=== PATIENT | female | born 1980 | race Caucasian/White ===

== ENCOUNTER 2021-10-17 06:40 | Emergency (ER) | payer OTHER, SELFPAY ==
--- NOTE | 2021-10-17 06:44 | ED.GENADUL_ITS ---
Discharge Plan Disposition Patient Disposition: HOME Condition: Improving Discharge Details Clinical Impression: Biliary colic Primary Care Provider: Debbie,Local ED Provider: aJz Patel Home Meds and New Rx's Prescriptions: New ondansetron 4 mg tablet,disintegrating 4 mg PO TID PRN (Reason: nausea and vomiting) Qty: 6 0RF Continued atorvastatin 20 mg Tablet 20 mg PO DAILY 0RF glimepiride 2 mg Tablet 2 mg PO QAM 0RF Rx Instructions: administer with breakfast glimepiride 1 mg Tablet 1 mg PO HS 0RF acetaminophen 650 mg Tablet Extended Release 650 mg PO DAILY 0RF metformin 1,000 mg Tablet 1,000 mg PO BID 0RF hydrochlorothiazide 25 mg Tablet 25 mg PO DAILY 0RF lisinopril 40 mg Tablet 40 mg PO DAILY 0RF calcium phos,dibas-vitamin D3 77-400 mg-unit Tablet 1 tab PO DAILY 0RF Ozempic 0.25 mg or 0.5 mg(2 mg/1.5 mL) Pen Injector 0.25 mg SUBCUT QWEEK 0RF Rx Instructions: for 4 doses Discharge Instructions Instructions: Biliary Colic (ED) Additional Instructions: Your lab work and imaging today shows evidence of stones within your gallbladder which are likely the source of your pain and nausea. There was no evidence of an acute infection of your gallbladder today. Your urine sample noted blood within your urine today. Follow-up with urology as an outpatient for this for further evaluation. It is recommended that you limit high-fat and fried foods as this can contribute to the development of gallstones. Call the general surgery office today to schedule a follow-up appointment for reevaluation. Return immediately to the emergency department if you develop any worsening or new concerning symptoms. Stand Alone Forms: Work Release Referrals: Jovani Tirado MD [ [facility] STAFF PHYSICIAN] - Susan Butcher MD [ [facility] STAFF PHYSICIAN] - Discharge Data Discharge Physician: Jaz Patel Medical Decision Making 41 yo female with hx of DM denies prior abdominal surgeries comes in with 3-4 days of increasing abdominal fullness and bloating and was not able to sleep well last night due to this sensation so came here for an eval. Denies pain like this in the past, no fevres, chills, vomit, chest pain, dyspnea. Denies urinary symptoms or diarrhea. She arrives stable in no distress. She localizes the discomfort to the upper to mid abdomen. She has tenderness on exam in the mid and ruq on exam, no guarding or peritoneal signs. Given the new discomfort and tenderness will obtain labs and imaging to evaluate for sbo, pancreatitis and cholecystitis among other pathologies. No pain out of proportion to exam so doubt mesenteric ischemia patient signed out to oncoming provider pending lab and imaging results, reassessment and final dispo 10/17/21 Dr. Patel [id number] --please see Dr. Ward's note for initial presentation, exam and plan. Case endorsed pending labs and imaging. Blood pressure mildly hypertensive, remainder vitals within normal limits. Patient appears comfortable and nontoxic. Her abdomen is obese and tender throughout but worse in the epigastrium, left upper quadrant and right upper quadrant. There is no rigidity or guarding. Differential diagnosis includes GERD, PUD, gastritis, pancreatitis, biliary colic, cholecystitis, hepatitis. History and presentation does not appear consistent with appendicitis, ovarian torsion, dissection, colitis, small bowel obstruction. Will order gallbladder ultrasound and CT abdomen and pelvis. Will give Pepcid, Zofran, GI cocktail and Carafate and reassess. 0930 -- Labs and imaging reviewed. Normal white blood cell count. Normal hemoglobin. Normal VBG. Glucose 221 but with normal electrolytes. Normal lipase. Normal liver function. Urinalysis notes large blood but no evidence of infection. CT abdomen and pelvis and ultrasound both note Rona lithiasis but no evidence of cholecystitis. Patient feels much better and she is requesting to go home. Patient placed on surgery follow-up list for reevaluation. She was also placed on care management list to arrange for a follow-up appointment with a primary care doctor to establish care. She was given a prescription for Zofran. It was recommended that she can take [id number] Pepcid or Prilosec if needed for pain. She was advised to limit high fat and fried foods. She was advised to return here immediately if she develops worsening pain, persistent vomiting, fever or any other concerns. Differential Diagnosis Differential Diagnosis: sbo, ibs, pancreatitis Medical Records Medical records reviewed: Yes I reviewed the patient's medical records. Imaging Data Radiologic Study: Radiologist's impression: CT ABDOMEN ? PELVIS W INDICATION:? upper abd pain, nausea. COMPARISON:? No exams were available for comparison TECHNIQUE:? FINDINGS: CT examination of the abdomen and pelvis was performed with a bolus infusion of 100 cc of Omnipaque 350.? Images obtained through the lung bases are unremarkable. The liver shows mildly decreased attenuation consistent with hepatic steatosis, no focal lesion identified. Gallbladder appears to contain a few small stones, bile ducts are CT normal. Pancreas appears normal. Spleen is unremarkable in appearance. Adrenals appear normal.? The kidneys are unremarkable except for a probable 17 millimeter in diameter right renal cyst the with no evidence of hydronephrosis, nephrolithiasis, or renal mass..? Urinary bladder unremarkable. Abdominal aorta is of normal diameter and no major vascular abnormality is seen. No abdominal wall hernia. No abdominal or pelvic adenopathy. SENIOR CARE MANAGER structures appear intact. Appendix is normal. No evidence of diverticulitis or bowel obstruction. IMPRESSION: Cholelithiasis with no specific evidence of acute cholecystitis or biliary obstruction.. US ABDOMEN LIMITED INDICATION:? RUQ pain, obese, nausea, r/o cholecystitis COMPARISON:? No exams were available for comparison TECHNIQUE:? Ultrasound abdomen performed using standard protocol FINDINGS: Abdominal ultrasound was performed according to the usual protocol. The liver is normal in size and shape. No focal hepatic lesion seen. There are few small gallstones, there is no biliary dilatation. No gallbladder wall thickening or pericholecystic fluid collection.? Negative sonographic Hatch sign Portal venous flow is hepatopetal. Pancreas appears intact as visualized. Spleen is unremarkable in appearance with no focal lesion. Kidneys are normal in size and shape. No renal mass, hydronephrosis, or nephrolithiasis. Abdominal aorta and IVC are of normal diameter. IMPRESSION: Cholelithiasis with no evidence of acute cholecystitis.. Lab Data Lab results reviewed: Yes I reviewed the patient's lab results. Labs: Laboratory Tests Range/Units 10/17/21 10/17/21 10/17/21 07:00 07:10 07:10 WBC (4.4-10.8) 10^3/uL 6.91 RBC (3.93-5.22) 10^6/uL 5.20 Hgb (11.2-15.7) g/dL 11.9 Hct (36.0-46.0) % 40.0 MCV (80-95) fL 76.9 L MCH (27.0-33.0) pg 22.9 L MCHC (32.0-36.0) % 29.8 L RDW (11.7-14.6) % 15.1 H Plt Count (130-400) 10^3/uL 411 H MPV (8.0-11.0) fL 8.0 Immature Gran % 0.6 Neutrophils % 54.5 Lymphocytes % 33.1 Monocytes % 8.5 Eosinophils % 2.7 Basophils % 0.6 Nucleated RBC % % 0 Absolute Neutrophils (1.2-6.7) 10^3/uL 3.76 Absolute Lymphocytes (1.2-3.4) 10^3/uL 2.29 Absolute Monocytes (0.1-0.8) 10^3/uL 0.59 Absolute Eosinophils (0.0-0.7) 10^3/uL 0.19 Absolute Basophils (0.0-0.2) 10^3/uL 0.04 VBG pH (7.31-7.41) VBG pCO2 (41-51) mmHg VBG pO2 mmHg VBG HCO3 (23-28) mmol/L VBG Total CO2 (24-29) mmol/L VBG O2 Saturation % VBG Base Excess (-2-3) mmol/L Sodium (136-145) mmol/L 138 Potassium (3.5-5.1) mmol/L 4.1 Chloride (98-107) mmol/L 102 Carbon Dioxide (21.0-32.0) mmol/L 28.8 Anion Gap (3-11) mmol/L 7.2 BUN (7-18) mg/dL 12 Creatinine (0.55-1.02) mg/dL 0.6 Estimated GFR/1.73 m2 (mL/min/1.73m2) >= 60.00 Glucose (74-106) mg/dL 221 H Calcium (8.5-10.1) mg/dL 9.0 Magnesium (1.8-2.4) mg/dL 1.9 Total Bilirubin (0.2-1.0) mg/dL 0.4 Conjugated Bilirubin (0.0-0.2) mg/dL 0.1 AST (15-37) U/L 30 ALT (14-59) U/L 44 Alkaline Phosphatase (46-116) U/L 94 Total Protein (6.4-8.2) g/dL 8.1 Albumin (3.4-5.0) g/dL 4.0 Lipase (73-393) U/L 130 Urine Color (Yellow) Yellow Urine Clarity (Clear) Sl Cloudy Urine pH (5-8) 6.0 Ur Specific Call (1.005-1.025) >= 1.030 H Urine Protein (Negative) mg/dL 100 H Urine Ketones (Negative) mg/dL Trace H Urine Blood (Negative) Large H Urine Nitrite (Negative) Negative Urine Bilirubin (Negative) Negative Urine Urobilinogen (Up TO 0.2) EU/dL 0.2 Ur Leukocyte Esterase (Negative) Negative Urine RBC (0-2) HPF 20-50 H Urine WBC (0-5) HPF 0-2 Ur Epithelial Cells (Negative) HPF Rare Urine Crystals (Negative) HPF Negative Urine Bacteria (Negative) HPF Few Urine Casts (Negative) LPF Negative Urine Mucus (Negative) Heavy Urine Other (Negative) Negative Ur Culture Indicated? No Urine Glucose (Negative) mg/dL Negative Range/Units 10/17/21 07:10 WBC (4.4-10.8) 10^3/uL RBC (3.93-5.22) 10^6/uL Hgb (11.2-15.7) g/dL Hct (36.0-46.0) % MCV (80-95) fL MCH (27.0-33.0) pg MCHC (32.0-36.0) % RDW (11.7-14.6) % Plt Count (130-400) 10^3/uL MPV (8.0-11.0) fL Immature Gran % Neutrophils % Lymphocytes % Monocytes % Eosinophils % Basophils % Nucleated RBC % % Absolute Neutrophils (1.2-6.7) 10^3/uL Absolute Lymphocytes (1.2-3.4) 10^3/uL Absolute Monocytes (0.1-0.8) 10^3/uL Absolute Eosinophils (0.0-0.7) 10^3/uL Absolute Basophils (0.0-0.2) 10^3/uL VBG pH (7.31-7.41) 7.38 VBG pCO2 (41-51) mmHg 49 VBG pO2 mmHg 64 VBG HCO3 (23-28) mmol/L 29 H VBG Total CO2 (24-29) mmol/L 27 VBG O2 Saturation % 92 VBG Base Excess (-2-3) mmol/L 4 H Sodium (136-145) mmol/L Potassium (3.5-5.1) mmol/L Chloride (98-107) mmol/L Carbon Dioxide (21.0-32.0) mmol/L Anion Gap (3-11) mmol/L BUN (7-18) mg/dL Creatinine (0.55-1.02) mg/dL Estimated GFR/1.73 m2 (mL/min/1.73m2) Glucose (74-106) mg/dL Calcium (8.5-10.1) mg/dL Magnesium (1.8-2.4) mg/dL Total Bilirubin (0.2-1.0) mg/dL Conjugated Bilirubin (0.0-0.2) mg/dL AST (15-37) U/L ALT (14-59) U/L Alkaline Phosphatase (46-116) U/L Total Protein (6.4-8.2) g/dL Albumin (3.4-5.0) g/dL Lipase (73-393) U/L Urine Color (Yellow) Urine Clarity (Clear) Urine pH (5-8) Ur Specific Call (1.005-1.025) Urine Protein (Negative) mg/dL Urine Ketones (Negative) mg/dL Urine Blood (Negative) Urine Nitrite (Negative) Urine Bilirubin (Negative) Urine Urobilinogen (Up TO 0.2) EU/dL Ur Leukocyte Esterase (Negative) Urine RBC (0-2) HPF Urine WBC (0-5) HPF Ur Epithelial Cells (Negative) HPF Urine Crystals (Negative) HPF Urine Bacteria (Negative) HPF Urine Casts (Negative) LPF Urine Mucus (Negative) Urine Other (Negative) Ur Culture Indicated? Urine Glucose (Negative) mg/dL HPI General Mode of arrival: ambulatory . Date/Time Provider Initiated Documentation: 10/17/21 06:42 . Limitations to Documentation: no limitations . Information obtained by: patient . History of Present Illness 41 year old F p resents to the emergency department with the chief complaint of abdomen pain, described as moderate, Quality is described as other (fullness), and is localized to the abdomen. Patient reports no radiation. and it has been constant. improves with No relieving factors improve symptom(s), No exacerbating factors reported . Patient notes denies fever/chills. Patient did receive the following treatments prior to arrival, none Related Data Home Medications Medication Instructions Recorded Confirmed acetaminophen 650 mg 650 mg PO DAILY 10/17/21 10/17/21 tablet,extended release atorvastatin 20 mg tablet 20 mg PO DAILY 10/17/21 10/17/21 calcium phosphate,dibasic 77 1 tab PO DAILY 10/17/21 10/17/21 mg-vitamin D3 400 unit tablet glimepiride 1 mg tablet 1 mg PO HS 10/17/21 10/17/21 glimepiride 2 mg tablet 2 mg PO QAM 10/17/21 10/17/21 hydrochlorothiazide 25 mg tablet 25 mg PO DAILY 10/17/21 10/17/21 lisinopril 40 mg tablet 40 mg PO DAILY 10/17/21 10/17/21 metformin 1,000 mg tablet 1,000 mg PO BID 10/17/21 10/17/21 ondansetron 4 mg disintegrating 4 mg PO TID PRN #6 tab 10/17/21 tablet semaglutide (Ozempic) 0.25 mg SUBCUT QWEEK 10/17/21 10/17/21 Previous Rx's Medication Instructions Recorded ondansetron 4 mg disintegrating 4 mg PO TID PRN #6 tab 10/17/21 tablet Allergies Allergy/AdvReac Type Severity Reaction Status Date / Time No Known Allergies Allergy Unverified 10/17/21 07:21 Review of Systems All systems reviewed & are unremarkable except as noted in HPI and below Constitutional Constitutional: Denies chills, Denies fever(s) and Denies weakness Cardiovascular Cardiovascular: Denies chest pain and Denies dyspnea Respiratory Respiratory: Denies cough and Denies dyspnea Gastrointestinal Gastrointestinal: Denies vomiting Neurologic Neurologic: Denies weakness PFSH All Active Problems (Updated 10/17/21 @ 09:40 by Jaz Patel DO) Biliary colic (Acute) Medical History (Updated 10/17/21 @ 09:40 by Jaz Patel DO) Diabetes Social History Smoking/Tobacco Use Status: Current every day Tobacco Type: cigarettes Smoking risk assessment performed?: Yes Alcohol Intake: never Drug use: Never Substance use type: does not use Do you feel safe at home: Yes Do you feel safe in your relationship?: Yes Exam Const General: no acute distress Orientation: alert HENMT Head: normal to inspection Ears: external ears normal General nose exam: external nose normal Mouth: moist mucous membranes Eyes General: appearance normal, both eyes and all related structures Neck Neck: normal visual inspection Resp Effort & Inspection: normal respiratory effort and able to speak in complete sentences Cardio Rate: regular rate GI Palpation: tender Skin General skin exam: no rashes or lesions noted Neuro General: patient alert and patient oriented x3 Extrem General: normal to inspection Psych Mental Status: mental status grossly normal Sign Out Sign Out Data: Sign Out Comment: 3-4 days abdominal fullness/discomfort, tender in mid and ruq on exam. Pending labs and CT, if everything negative and she's stable likely d/c with pcp f/u Last updated by Piyush Ward MD at 10/17/21 07:05
[2021-10-17 06:49] VITALS: BP 158/80; PULSE 95; RESP 18; TEMP 36.4; O2SAT 96
[2021-10-17] MEDS: Normal Saline Flush 10 ML SYR IVP (07:10)
[2021-10-17] MEDS: Normal Saline 1,000 ML 1000 ML IV (07:13)
[2021-10-17 07:19] LABS: BE (Venous) 4 mmol/L (-2-3); HCO3 (Venous) 29 mmol/L (23-28); O2 Sat (Venous) 92 %; TCO2 (Venous) 27 mmol/L (24-29); pCO2 (Venous) 49 mmHg (41-51); pH (Venous) 7.38 (7.31-7.41); pO2 (Venous) 64 mmHg
[2021-10-17 07:22] LABS: Abs Immature Grans 0.04 10^3/uL (0.0-0.06); Absolute Basophil Count 0.04 10^3/uL (0.0-0.2); Absolute Eosinophil Count 0.19 10^3/uL (0.0-0.7); Absolute Lymphocyte Count 2.29 10^3/uL (1.2-3.4); Absolute Monocyte Count 0.59 10^3/uL (0.1-0.8); Absolute Neutrophil Count 3.76 10^3/uL (1.2-6.7); Basophils % 0.6; Eosinophils % 2.7; HGB 11.9 g/dL (11.2-15.7); Immature Grans % 0.6; Lymphocytes % 33.1; MCH 22.9 pg (27.0-33.0); MCHC 29.8 % (32.0-36.0); MCV 76.9 fL (80-95); Monocytes % 8.5; Neutrophils % 54.5; Nucleated RBC 0 %; Platelet Count 411 10^3/uL (130-400); RDW 15.1 % (11.7-14.6); RDW-SD 41.3 fL; WBC 6.91 10^3/uL (4.4-10.8)
[2021-10-17 07:36] LABS: Bilirubin Negative (Negative); Blood Large (Negative); Clarity Sl Cloudy (Clear); Glucose Negative (Negative); Ketones Trace mg/dL (Negative); Leukocyte Esterase Negative (Negative); Nitrite Negative (Negative); Specific Gravity >= 1.030 (1.005-1.025); Urobilinogen 0.2 EU/dL (Up TO 0.2)
[2021-10-17 07:41] LABS: ALT 44 U/L (14-59); AST 30 U/L (15-37); Alkaline Phosphatase 94 U/L (46-116); Anion Gap 7.2 mmol/L (3-11); BUN 12 mg/dL (7-18); Bilirubin, Direct 0.1 mg/dL (0.0-0.2); Bilirubin, Total 0.4 mg/dL (0.2-1.0); CO2 28.8 mmol/L (21.0-32.0); CREATININE 0.6 mg/dL (0.55-1.02); Chloride 102 mmol/L (98-107); Glucose 221 mg/dL (74-106); Lipase 130 U/L (73-393); Magnesium 1.9 mg/dL (1.8-2.4); Potassium 4.1 mmol/L (3.5-5.1); Sodium 138 mmol/L (136-145); Total Protein 8.1 g/dL (6.4-8.2)
--- NOTE | 2021-10-17 07:45 | DI.US_ITS ---
Exam(s) US ABDOMEN LIMITED EXAM: US ABDOMEN LIMITED INDICATION: RUQ pain, obese, nausea, r/o cholecystitis COMPARISON: No exams were available for comparison TECHNIQUE: Ultrasound abdomen performed using standard protocol FINDINGS: Abdominal ultrasound was performed according to the usual protocol. The liver is normal in size and shape. No focal hepatic lesion seen. There are few small gallstones, there is no biliary dilatation. No gallbladder wall thickening or per icholecystic fluid collection. Negative sonographic Hatch sign Portal venous flow is hepatopetal. Pancreas appears intact as visualized. Spleen is unremarkable in appearance with no focal lesion. Kidneys are normal in size and shape. No renal mass, hydronephrosis, or nephrolithiasis. Abdominal aorta and IVC are of normal diameter. IMPRESSION: Cholelithiasis with no evidence of acute cholecystitis..
--- NOTE | 2021-10-17 07:45 | DI.CT_ITS ---
Exam(s) CT ABDOMEN PELVIS W EXAM: CT ABDOMEN PELVIS W INDICATION: upper abd pain, nausea. COMPARISON: No exams were available for comparison TECHNIQUE: FINDINGS: CT examination of the abdomen and pelvis was performed with a bolus infusion of 100 cc of Omnipaque 3 50. Images obtained through the lung bases are unremarkable. The liver shows mildly decreased attenuation consistent with hepatic steatosis, no focal lesion ident ified. Gallbladder appears to contain a few small stones, bile ducts are CT normal. Pancreas appears normal. Spleen is unremarkable in appearance. Adrenals appear normal. The kidneys are unremarkable except for a probable 17 millimeter in diameter right renal cyst the wit h no evidence of hydronephrosis, nephrolithiasis, or renal mass.. Urinary bladder unremarkable. Abdominal aorta is of normal diameter and no major vascular abnormality is seen. No abdominal wall hernia. No abdominal or pelvic adenopathy. PEOPLESO[employer] DEVELOPER structures appear intact. Appendix is normal. No evidence of diverticulitis or bowel obstruction. IMPRESSION: Cholelithiasis with no specific evidence of acute cholecystitis or biliary obstruction.. RADIATION DOSE DELIVERED: 1,140.66mGy.cm Total DLP 1,140.66mGy.cm Total DLP !Error CTDIvol RADIATION OPTIMIZATION: All CT scans at this facility use at least one of these dose optimization te chniques: automated exposure control; mA and/or kV adjustment per patient size (includes targeted exa ms where dose is matched to clinical indication); or iterative reconstruction.
[2021-10-17] MEDS: Sucralfate 1 GM TAB PO (07:57)
[2021-10-17] MEDS: Ondansetron 4 MG/2 ML VIAL IVP (07:58)
[2021-10-17 08:00] LABS: Epithelial Cells Rare HPF (Negative); Other Cells Negative (Negative); RBC 20-50 HPF (0-2); WBC 0-2 HPF (0-5)
[2021-10-17 08:01] LABS: Bacteria Few HPF (Negative); C & S Indicated? No; Casts Negative LPF (Negative); Crystals Negative HPF (Negative); Mucus Heavy (Negative)
[2021-10-17] MEDS: Omnipaque 350 MG/ML 100 ML BTL IV (08:34)
[2021-10-17] MEDS: Famotidine 20 MG/2 ML VIAL IVP (08:44)
[2021-10-17] MEDS: Normal Saline 50 ML 200 ML (08:45)
[2021-10-17 09:28] VITALS: BP 159/89; PULSE 77; RESP 16; TEMP 36.9; O2SAT 96
--- NOTE | 2021-10-17 10:06 | NUR.NOTE ---
referral for PCP, to establish care/ED visit within 2 wks, and Gen surg. for biliary colic withinj 1 week noted and faxed.
== END 2021-10-17 09:50 | disposition home or self-care (01) ==
PROVIDERS: Emergency Medicine; Emergency Provider Physician Assistant
DX: K80.50 Calculus of bile duct without cholangitis or cholecystitis without obstruction (principal); R10.11 Right upper quadrant pain; R11.0 Nausea
CPT/HCPCS: 36415; 80053; 81025; 82805; 83690; 96361; 96374; 96375; 99285; 74177; 76705; 81003; 81015; 82248; 83735; 85025; 99284; J2405; J3490

== ENCOUNTER 2022-05-30 07:10 | Emergency (ER) | payer OTHER, SELFPAY ==
[2022-05-30 07:13] VITALS: BP 149/80; PULSE 74; RESP 20; TEMP 36.5; O2SAT 99
--- NOTE | 2022-05-30 07:15 | DI.CT_ITS ---
Exam(s) CT ABDOMEN PELVIS W EXAM: CT ABDOMEN PELVIS W CLINICAL HISTORY: left sided abdominal pain TECHNIQUE: Imaging Protocol: Axial computed tomography images with coronal and sagittal reformatted images were created and reviewed CONTRAST MATERIAL: Intravenous: Omnipaque 350 Contrast volume:100 mL Oral: No COMPARISON: CT CT ABDOMEN PELVIS W from 10/17/2021 FINDINGS: ABDOMEN: Lung Bases: Normal where visualized. Liver: Normal density. No measurable mass. Portal, Superior Mesenteric, and Splenic Veins: Unremarkable. Gallbladder and Biliary Tract: Cholelithiasis. No biliary ductal dilatation. Pancreas: Normal density, no abnormal calcifications or inflammatory process. Spleen: Normal. Adrenals: No masses seen. Kidneys: Normal size, contour and axis. No radiodense stones or obstructive uropathy. There are stabl e bilateral renal cysts. No follow-up is recommended. Abdominal Aorta: Abdominal portion non-dilated. Mild atherosclerosis. Bowel: No evidence of bowel obstruction. The appendix measures 9 mm in diameter. There is air seen within the appendix. Appendicoliths are present. No Radha appendiceal inflammatory changes are seen. Peritoneal Cavity: No ascites, collection or mesenteric inflammatory response. No free air. Lymph Nodes: Within normal limits. Bones: Within normal limits for the patient's age. Soft Tissues: Unremarkable. PELVIS: Bladder: Symmetric distention, no gross wall thickening. Reproductive Organs: There is a 4.1 x 4.3 cm mildly hypoechoic mass which appears to be myometrial. This may reflect a fibroid. It lies adjacent to the endometrium. The possibility of a endometrial m ass cannot be excluded. There is a 4.6 x 3.0 cm right adnexal mass. There is a cystic component and calcifications are also present. There is a 2.7 x 3.0 cm left ovarian cyst. Lymph Nodes: Within normal limits. Bones: Within normal limits for the patient's age. IMPRESSION: 1. The appendix measures 9 mm in diameter. There is air within the appendix and no Radha appendiceal inflammatory changes are seen. Appendicoliths are present. No abscess or free air. Please correlat e clinically. An early and appendicitis cannot be entirely excluded. 2. Complex right adnexal lesion suspicious for dermoid. 3. 4.1 x 4.3 cm hypoechoic mass which appears to be myometrial may represent a fibroid. The possibil ity of an endometrial mass such as a polyp cannot be excluded. Pelvic ultrasound may be obtained for further evaluation. 4. Cholelithiasis. No biliary ductal dilatation. 5. Findings were discussed with Dr. Patel at 8:30 a.m. on 05/30/2022. RADIATION DOSE DELIVERED: 1,327.53mGy.cm Total DLP DATA REPOSITORY: All CT scans at this facility are submitted to the National Radiology Data Registry (NRDR) Dose Index Registry (DIR) with the [employer] (ACR). RADIATION OPTIMIZATION: All CT scans at this facility use at least one of these dose optimization te chniques: automated exposure control; mA and/or kV adjustment per patient size (includes targeted exa ms where dose is matched to clinical indication); or iterative reconstruction.
--- NOTE | 2022-05-30 07:25 | ED.GENADUL_ITS ---
Discharge Plan Disposition Patient Disposition: STILL A PATIENT Condition: Stable Discharge Details Chief Complaint: Abd Prob Clinical Impression: Abdominal pain Primary Care Provider: Shanel Troy ED Provider: Piyush Ward [place] Meds and New Rx's Prescriptions: No Action famotidine 20 mg tablet 20 mg PO DAILY hydrochlorothiazide 25 mg tablet 25 mg PO DAILY Qty: 90 3RF atorvastatin 20 mg tablet 20 mg PO DAILY Qty: 90 1RF glimepiride 1 mg tablet 1 mg PO HS Qty: 90 1RF lisinopril 40 mg tablet 40 mg PO DAILY Qty: 90 1RF metformin 1,000 mg tablet 1,000 mg PO BID Qty: 180 1RF bupropion HCl [Wellbutrin XL] 150 mg tablet extended release 24 hr 150 mg PO QAM Qty: 30 3RF citalopram 40 mg tablet 40 mg PO DAILY Qty: 90 3RF glimepiride 2 mg tablet 2 mg PO QAM Qty: 90 1RF Rx Instructions: administer with breakfast Ozempic 1 mg/dose (4 mg/3 mL) pen injector See Rx Instructions .ROUTE .COMPLEX Qty: 6 1RF Dose Instruction: INJECT 2MG (TWO 1MG DOSES) SUBCUTANEOUSLY ONCE A WEEK Rx Instructions: INJECT 2MG (TWO 1MG DOSES) SUBCUTANEOUSLY ONCE A WEEK Medical Decision Making 41 yo female with no chronic medical problems who denies prior abdominal surgeries, has had gallstones in the past, comes in with worsening left sided abdominal pain for 3 days. She denies fevers, chills, n/c, constipation, diarrhea. She denies chest pain or dyspnea. She localizes the pain to the luq and intermittently radiates to the back. She arrives stable, speaking in full sentences in no distress. She is tender with palpation to the luq and llq, no guarding, no rebound and no distention, no right sided abdominal tenderness. No cva tenderness. Given location of her pain and the radiation of her pain will obtain labs including cbc, cmp, lipase and also ct to evaluate for causes such as diverticulitis and less likely kidney stone pt signed out to oncoming provider pending labs and imaging results and reassessment. Differential Diagnosis Differential Diagnosis: gastritis, enteritis, pancreatitis Medical Records Medical records reviewed: Yes I reviewed the patient's medical records. Lab Data Lab results reviewed: Yes I reviewed the patient's lab results. HPI General Mode of arrival: ambulatory . Date/Time Provider Initiated Documentation: 05/30/22 07:13 . Limitations to Documentation: no limitations . Information obtained by: patient . History of Present Illness 41 year old F presents to the emergency department with the chief complaint of abdominal pain, described as moderate, Quality is described as aching, and is localized to the abdomen. Patient reports radiation to back. Patient started experiencing this day(s) (3) and it has been constant. No relieving factors improve symptom(s), No exacerbating factors reported . Patient notes no other sympto ms.. Patient did receive the following treatments prior to arrival, none Related Data Home Medications Medication Instructions Recorded Confirmed famotidine 20 mg tablet 20 mg PO DAILY 11/28/21 03/27/22 hydrochlorothiazide 25 mg tablet 25 mg PO DAILY #90 tabs 11/28/21 03/27/22 citalopram 40 mg tablet 40 mg PO DAILY #90 tabs 12/12/21 03/27/22 glimepiride 2 mg tablet 2 mg PO QAM #90 tabs 01/22/22 03/27/22 atorvastatin 20 mg tablet 20 mg PO DAILY #90 tabs 02/18/22 03/27/22 glimepiride 1 mg tablet 1 mg PO HS #90 tabs 02/18/22 03/27/22 lisinopril 40 mg tablet 40 mg PO DAILY #90 tabs 02/18/22 03/27/22 metformin 1,000 mg tablet 1,000 mg PO BID #180 tabs 02/18/22 03/27/22 bupropion HCl 150 mg 24 hr tablet, 150 mg PO QAM #30 tabs 03/27/22 03/27/22 extended release (Wellbutrin XL) semaglutide 1 mg/dose (4 mg/3 mL) See Rx Instructions .Route 05/02/22 subcutaneous pen injector (Ozempic) .COMPLEX #6 mL Previous Rx's Medication Instructions Recorded hydrochlorothiazide 25 mg tablet 25 mg PO DAILY #90 tabs 11/28/21 citalopram 40 mg tablet 40 mg PO DAILY #90 tabs 12/12/21 glimepiride 2 mg tablet 2 mg PO QAM #90 tabs 01/22/22 atorvastatin 20 mg tablet 20 mg PO DAILY #90 tabs 02/18/22 glimepiride 1 mg tablet 1 mg PO HS #90 tabs 02/18/22 lisinopril 40 mg tablet 40 mg PO DAILY #90 tabs 02/18/22 metformin 1,000 mg tablet 1,000 mg PO BID #180 tabs 02/18/22 bupropion HCl 150 mg 24 hr tablet, 150 mg PO QAM #30 tabs 03/27/22 extended release (Wellbutrin XL) semaglutide 1 mg/dose (4 mg/3 mL) See Rx Instructions .Route 05/02/22 subcutaneous pen injector (Ozempic) .COMPLEX #6 mL Allergies Allergy/AdvReac Type Severity Reaction Status Date / Time No Known Allergies Allergy Verified 04/10/22 14:19 General Stated Complaint: Abd Prob MARITZA: 3 Review of Systems All systems reviewed & are unremarkable except as noted in HPI and below Constitutional Constitutional: Denies chills, Denies fever(s) and Denies weakness Cardiovascular Cardiovascular: Denies chest pain and Denies dyspnea Respiratory Respiratory: Denies cough and Denies dyspnea Integumentary/Breasts Skin/Breast: Denies rash Neurologic Neurologic: Denies weakness PFSH All Active Problems (Updated 05/30/22 @ 07:30 by Piyush Ward MD) Abdominal pain (Acute) Type 2 diabetes mellitus (Acute) Dermatitis (Acute) Hypertension (Chronic) Diabetes (Chronic) Depression (Chronic) Hyperlipidemia (Acute) Medical History (Updated 05/30/22 @ 07:30 by Piyush Ward MD) Fracture closed, humerus Surgical History (Updated 10/19/21 @ 11:08 by Susan Butcher MD) History of placement of ear tubes Family History (Updated 11/13/21 @ 08:47 by Juanita Buchanan) Daughter Substance use disorder Asthma Anxiety Other Breast cancer Cancer Colon cancer Depression Diabetes Hypertension Social History (Updated 03/27/22 @ 09:02 by Yvonne Dunbar LPN) Smoking/Tobacco Use Status: Former Tobacco Use Quit Date: 09/18/21 Tobacco: How many years used: 20 Quit status: has quit before Smoking risk assessment performed?: Yes Alcohol Intake: never Drug use: Never Substance use type: does not use Adopted: No Caregiver/Support person: No Foster care: No Household members: spouse Housing: house Number of Children: 3 number of grandchildren: 4 Communication Needs: Corrective Lenses Education Level: college Details: Associate's Degree Do you need help understanding health information?: Rarely current occupation: Manufacturing Pets and animals: Yes Pets and animals: cat(s) and dog(s) Sexually active: Yes Do you think of yourself as: straight/heterosexual Current gender identity: female What is your relationship status?: How often do you talk on the phone with friends or family?: three or more times per week How often do you get together with friends or relatives?: once per week Do you belong to any clubs or organized social groups?: no Panel score (0-1 are the most socially isolated patients): 2 What type of physical activity do you participate in: none Alivia/Restoration: Anabaptism Special alivia needs: No Seatbelt use: always Helmet use: Yes Helmet use: always Drive intox or ride w/intox boom truck driver: No Working smoke detector in home: Yes Fire extinguisher in home: Yes Carbon monox detector in home: Yes Do you feel safe at home: Yes Do you feel safe in your relationship?: Yes Victim of physical abuse: No Exam Const General: no acute distress Orientation: alert HENSD Head: normal to inspection Ears: external ears normal General nose exam: external nose normal Mouth: moist mucous membranes Eyes General: appearance normal, both eyes and all related structures Neck Neck: normal visual inspection Resp Effort & Inspection: normal respiratory effort and able to speak in complete sentences Cardio Rate: regular rate GI Palpation: soft and tender Skin General skin exam: no rashes or lesions noted Neuro General: patient alert and patient oriented x3 Extrem General: normal to inspection Psych Mental Status: mental status grossly normal Course Vital Signs Vital signs: Vital Signs Temperature 36.5 C 05/30/22 07:13 Pulse 74 05/30/22 07:13 Respiratory Rate 20 05/30/22 07:13 Blood Pressure 149/80 H 05/30/22 07:13 Pulse Oximetry 99 05/30/22 07:13 Temperature 36.5 C 05/30/22 07:13 Temperature Source Temporal Artery Scan 05/30/22 07:13 Pulse 74 05/30/22 07:13 Respiratory Rate 20 05/30/22 07:13 Blood Pressure 149/80 H 05/30/22 07:13 Blood Pressure Position Sitting 05/30/22 07:13 Pulse Oximetry 99 05/30/22 07:13 Oxygen Delivery Method Room Air 05/30/22 07:13 Oxygen Flow Rate 0 05/30/22 07:13 Pain Level 6 05/30/22 07:13
--- OUTSIDE RECORDS SUMMARY | 2022-05-30 07:25 | XMS_ITS | Encounter Summary ---
:1980 Author Organization [facility] Address [address] [place] [address] Care Team Providers Name Role Phone Unavailable Primary Care Provider Unavailable Encounter Details Date Type Department Care Team Description 04/12/2022 Lab Requisition [facility] Outr Resulting Lab, Pathology & Laboratory Provider [facility] [address] [place] [address] Social History Tobacco Use Types Packs/Day Years Used Date Smoking Tobacco: Never Assessed Sex Assigned at Date Recorded Not on file documented as of this encounter Plan of Treatment Not on filedocumented as of this encounter Procedures Procedure Name Priority Date/Time Associated Diagnosis Comme nts LYME AB Routine 04/12/2022 7:06 EDT Results for this procedure are i n the results section. ANTI NUCLEAR AB Routine 04/12/2022 7:06 EDT Resul ts for this (MARYANA), IFA procedure are i n the results section. documented in this encounter Results LYME AB (04/12/2022 7:06 EDT) athologist Signature Lyme Ab Negative Negative 04/15/2022 [facility] 11:03 EDT [facility] Specimen Anatomical Collection Method Collection Time Receive d Time (Source) Location / / Volume Laterality Blood VENOUS BLOOD / 04/12/2022 7:06 04/12/2022 Unknown EDT 21:17 EDT Provider Outr Resulting Lab IMMUNOLOGY AND SEROLOGY OR DERABLES Performing Organization Address City/State/ZIP Code Phon e Number [facility] [address] [place] [address] SERVICES ANTI NUCLEAR AB (MARYANA), IFA (04/12/2022 7:06 EDT) [facility] gist Method Time Signature MARYANA Interpretation Negative Negative 04/15/2022 [facility] 13:44 EDT [facility] Comment: No titer performed, MARYANA Screen is negative. Specimen Anatomical Collection Method Collection Time Receive d Time (Source) Location / / Volume Laterality Blood VENOUS BLOOD / 04/12/2022 7:06 04/12/2022 Unknown EDT 21:17 EDT Narrative [facility] - 04/15/2022 13:44 EDT Results were obtained with the [employer] NOV A Lite HEp-2 MARYANA Kit by indirect immunofluorescence. Provider Outr Resulting Lab IMMUNOLOGY AND SEROLOGY OR DERABLES Performing Organization Address City/State/ZIP Code Phon e Number [facility] [address] [place] [address] SERVICES documented in this encounter Visit Diagnoses Not on filedocumented in this encounter
--- OUTSIDE RECORDS SUMMARY | 2022-05-30 07:25 | XMS_ITS | Encounter Summary ---
:1980 Author Organization [facility] Address [address] [place] [address] Care Team Providers Name Role Phone Unavailable Primary Care Provider Unavailable Encounter Details Date Type Department Care Team Description 06/14/2020 Lab Requisition [facility] Outr Resulting Lab, Pathology & Laboratory Provider [facility] [address] [place] [address] Social History Tobacco Use Types Packs/Day Years Used Date Smoking Tobacco: Never Assessed Sex Assigned at Date Recorded Not on file documented as of this encounter Plan of Treatment Scheduled Orders Name Type Priority Associated Diagnoses Order S chedule PAP TEST Pathology Routine Ordered: 2019 documented as of this encounter Visit Diagnoses Not on filedocumented in this encounter
--- OUTSIDE RECORDS SUMMARY | 2022-05-30 07:25 | XMS_ITS | Clinical Summary ---
:1980 Author Organization [facility] Address [address] [place] [address] Care Team Providers Name Role Phone Unavailable Primary Care Provider Unavailable Encounters Date Type Specialty Care Team Description 04/12/2022 Lab Requisition Clinical Laboratory Outr Resulting Lab , Provider from Last 3 Months Social History Tobacco Use Types Packs/Day Years Used Date Smoking Tobacco: Never Assessed Sex Assigned at Date Recorded Not on file Plan of Treatment Not on file Procedures Procedure Name Priority Date/Time Associated Diagnosis Comme nts LYME AB Routine 04/12/2022 7:06 EDT Results for this procedure are i n the results section. ANTI NUCLEAR AB Routine 04/12/2022 7:06 EDT Resul ts for this (MARYANA), IFA procedure are i n the results section. from Last 3 Months Results LYME AB (04/12/2022 7:06 EDT) P athologist Signature Lyme Ab Negative Negative 04/15/2022 [facility] 11:03 EDT CENTER LAB[facility] SERVICES Specimen Anatomical Collection Method Collection Time Receive d Time (Source) Location / / Volume Laterality Blood VENOUS BLOOD / 04/12/2022 7:06 04/12/2022 Unknown EDT 21:17 EDT Provider Outr Resulting Lab IMMUNOLOGY AND SEROLOGY OR DERABLES Performing Organization Address City/State/ZIP Code Phon e Number [facility] [address] [place] [address] SERVICES ANTI NUCLEAR AB (MARYANA), IFA (04/12/2022 7:06 EDT) [facility] gist Method Time Signature MARYANA Interpretation Negative Negative 04/15/2022 [facility] 13:44 EDT [facility]ENTER LAB[facility] SERVICES Comment: No titer performed, MARYANA Screen is negative. Specimen Anatomical Collection Method Collection Time Receive d Time (Source) Location / / Volume Laterality Blood VENOUS BLOOD / 04/12/2022 7:06 04/12/2022 Unknown EDT 21:17 EDT Narrative [facility] - 04/15/2022 13:44 EDT Results were obtained with the INOVA NOV A Lite HEp-2 MARYANA Kit by indirect immunofluorescence. Provider Outr Resulting Lab IMMUNOLOGY AND SEROLOGY OR DERABLES Performing Organization Address City/State/ZIP Code Phon e Number [facility] [address] [place] [address] SERVICES from Last 3 Months
--- OUTSIDE RECORDS SUMMARY | 2022-05-30 07:25 | XMS_ITS | Encounter Summary ---
:1980 Author Organization [facility] Address [address] [place] [address] Care Team Providers Name Role Phone Unavailable Primary Care Provider Unavailable Encounter Details Date Type Department Care Team Description 04/20/2021 Lab Requisition [facility] Outr Resulting Lab, Pathology & Laboratory Provider [facility] [address] [place] [address] Social History Tobacco Use Types Packs/Day Years Used Date Smoking Tobacco: Never Assessed Sex Assigned at Date Recorded Not on file documented as of this encounter Plan of Treatment Not on filedocumented as of this encounter Procedures Procedure Name Priority Date/Time Associated Diagnosis Comme nts [facility] 04/20/2021 16:29 LAB PCR EDT COVID-19 TESTING Routine 04/20/2021 16:29 Results for this EDT procedure are i n the results section. documented in this encounter Results COVID-19 TEST [facility] LAB PCR (04/20/2021 16:29 EDT) Specimen Anatomical Location Collection Method Collection Time Received Time (Source) / Laterality / Volume Swab ENTIRE NASOPHARYNX 04/20/2021 16:29 04/20 / Unknown EDT 21:26 EDT Provider Outr Resulting Lab MICROBIOLOGY - GENERAL ORD ERABLES Performing Organization Address City/State/ZIP Code Phon e Number [facility] [address] [place] [address] SERVICES COVID-19 TESTING (04/20/2021 16:29 EDT) Analysis Performed At Path logist Time Signature COVID-19 Negative Negative 04/21/2021 [facility] MED[facility] rt-PCR Result 13:54 EDT CENTER LABORATORY SERVICES Comment: This test has not been FDA cleared or ap proved. This test has been authorized by FDA under an EUA for use by authorized laboratories. This test has been authorized only for detection of nucleic acid fro m 2019-nCoV, not for any other viruses o r pathogens. This test is only authorized for the duration of the declaration that circumstances exist justifying the authorization of emergency use of in vitro d iagnostic tests for detection and/or artemio gnosis of 2019-nCoV under section 564(b)(1) of Act, 21 U.S.C ?? 360bbb-3(b) (1), unless the authorization is terminated or revoked sooner. Negative results do not preclude 2019-nC oV infection and should not be used as the sole basis for treatment or other patient management decisions. Negative results must be combined with clinical observa tions, patient history, and epidemiologi sudarshan information. Testing was performed using the goldy SA RS-CoV-2 assay ([employer] on the Goldy 6800 System Performing Lab Goldy 6800 [facility] 04/21/2021 13:54 E DT [facility] Lab LABORATORY SERVICES Specimen Anatomical Collection Method Collection Time Receive d Time (Source) Location / / Volume Laterality Swab 04/20/2021 16:29 04/20/2021 EDT 21:26 EDT Provider Outr Resulting Lab MICROBIOLOGY - GENERAL ORD ERABLES Performing Organization Address City/State/ZIP Code Phon e Number [facility] [address] [place] [address] SERVICES documented in this encounter Visit Diagnoses Not on filedocumented in this encounter
--- OUTSIDE RECORDS SUMMARY | 2022-05-30 07:25 | XMS_ITS | Encounter Summary ---
:1980 Author Organization [facility] Address [address] [place] [address] Care Team Providers Name Role Phone Unavailable Primary Care Provider Unavailable Encounter Details Date Type Department Care Team Description 11/05/2019 Lab Requisition [facility] Kaylee Miranda for other Pathology & MD Naren general examination Laboratory Medicine - [address] [place] [address] [facility] [id number] [place] [address] Social History Tobacco Use Types Packs/Day Years Used Date Smoking Tobacco: Never Assessed Sex Assigned at Date Recorded Not on file documented as of this encounter Plan of Treatment Not on filedocumented as of this encounter Procedures Procedure Name Priority Date/Time Associated Diagnosis Comme nts COVID-19 TEST [facility] Today 11/05/2019 15:37 Encounter for oth er Results for this LAB PCR EDT general examination procedur e are in the results section. documented in this encounter Results COVID-19 TEST [facility] LAB PCR (11/05/2019 15:37 EDT) Analysis Performed At Patho logist Time Signature COVID-19 Negative Negative 11/06/2019 [facility] MED[facility] rt-PCR Result 15:41 EDT CENTER LABORATORY SERVICES Comment: Negative results do not preclude 2019- oV infection and should not be used as the sole basis for treatment or other patient management decisions. Negative results must be combined with clinical observa tions, patient history, and epidemiologi sudarshan information. This test has not been FDA cleared or ap proved. This test has been internally validated, but independent review and determination of emergency use authorization ??(EUA) by the FDA is pending. Performed on the [employer] Fast Specimen Anatomical Location Collection Method Collection Time Received Time (Source) / Laterality / Volume Swab ENTIRE NASOPHARYNX 11/05/2019 15:37 11/04 / Unknown EDT 21:28 EDT Naren Miranda MD MICROBIOLOGY - GENERAL ORDER DARIO Performing Organization Address City/State/ZIP Code Phon e Number [facility] [address] [place] [address] SERVICES documented in this encounter Visit Diagnoses Diagnosis Encounter for other general examination documented in this encounter
--- OUTSIDE RECORDS SUMMARY | 2022-05-30 07:25 | XMS_ITS | Encounter Summary ---
:1980 Author Organization [facility] Address [address] [place] [address] Care Team Providers Name Role Phone Unavailable Primary Care Provider Unavailable Encounter Details Date Type Department Care Team Description 10/04/2020 Lab Requisition [facility] Outr Resulting Lab, Pathology & Laboratory Provider [facility] [address] [place] [address] Social History Tobacco Use Types Packs/Day Years Used Date Smoking Tobacco: Never Assessed Sex Assigned at Date Recorded Not on file documented as of this encounter Plan of Treatment Not on filedocumented as of this encounter Procedures Procedure Name Priority Date/Time Associated Diagnosis Comme nts COVID[facility] Today 10/04/2020 11:02 LAB PCR EDT COVID-19 TESTING Routine 10/04/2020 11:02 Results for this EDT procedure are i n the results section. documented in this encounter Results COVID-19 TEST [facility] LAB PCR (10/04/2020 11:02 EDT) Specimen Anatomical Location Collection Method Collection Time Received Time (Source) / Laterality / Volume Swab ENTIRE NASOPHARYNX 10/04/2020 11:02 10/04 / Unknown EDT 22:05 EDT Provider Outr Resulting Lab MICROBIOLOGY - GENERAL ORD ERABLES Performing Organization Address City/State/ZIP Code Phon e Number [facility] [address] [place] [address] SERVICES COVID-19 TESTING (10/04/2020 11:02 EDT) [facility] COVID-19 Negative Negative 10/05/2020 [facility] MED[facility] rt-PCR Result 11:15 EDT CENTER LABORATORY SERVICES Comment: This test [...] using the goldy SA RS-CoV-2 assay ([employer] on the Goldy 6800 System Performing Lab Goldy [address] [facility] 10/05/2020 11:15 E DT [facility] Lab LABORATORY SERVICES Specimen Anatomical Collection Method Collection Time Receive d Time (Source) Location / / Volume Laterality Swab 10/04/2020 11:02 10/04/2020 EDT 22:05 EDT Provider Outr Resulting Lab MICROBIOLOGY - GENERAL ORD ERABLES Performing Organization Address City/State/ZIP Code Phon e Number [facility] [address] [place] [address] SERVICES documented in this encounter Visit Diagnoses Not on filedocumented in this encounter
--- OUTSIDE RECORDS SUMMARY | 2022-05-30 07:26 | XMS_ITS | Continuity of Care Document ---
:1980 Author Organization [facility] Address [address] [place] [address] Care Team Providers Name Role Phone Shanel Troy Primary Care Physician Encounter [facility] Date(s): 04/12/22 - 04/12/[address] [address] Discharge Disposition: Home or Self Care Attending Physician: Shanel Troy Admitting Physician: Shanel Troy Referring Physician: Shanel Troy Allergies, Adverse Reactions, Alerts No Known Medication Allergies Assessment and Plan Diagnostic Tests PendingAnti Nuclear Ab (MARYANA), IFA UV 04/12/22Tick-Borne Disease Abs Panel, S DUBON 04/12/22Lyme Antibody UV 04/12/22 Immunizations Given and Recorded Vaccine Date Status Refusal Reason SARS-CoV-2 (COVID-19) mRNA-1273 vaccine 10/27/21 Recorded influenza virus vaccine, live 05/09/21 Recorded tetanus-diphth toxoids (Td) adult/adol 04/14/20 Recorded tetanus-diphth toxoids (Td) adult/adol 07/21/95 Recorded influenza virus vaccine, inactivated 06/04/19 Recorded tetanus/diphth/pertuss (Tdap) adult/adol 10/14/07 Recorde d rubella virus vaccine 07/21/00 Recorded varicella virus vaccine 07/21/00 Recorded Results Laboratory List Name Date Comprehensive Metabolic Panel 04/12/22 Rheumatoid Factor Qual 04/12/22 Most recent to oldest [Reference Range]: 1 BUN [7-18 mg/dL] 16 mg/dL (04/12/22 7:06 AM) Glucose Level [74-106 mg/dL] 124 mg/dL *HI* (04/12/22 7:06 AM) Potassium Level [3.5-5.1 mmol/L] 3.8 mmol/L (04/12/22 7:06 AM) AST [15-37 unit/L] 22 unit/L (04/12/22 7:06 AM) ALT [16-63 unit/L] 35 unit/L (04/12/22 7:06 AM) Sodium Level [136-145 mmol/L] 139 mmol/L (04/12/22 7:06 AM) Calcium Level [8.5-10.1 mg/dL] 8.8 mg/dL (04/12/22 7:06 AM) Albumin Level [3.4-5.0 g/dL] 3.6 g/dL (04/12/22 7:06 AM) Protein Total [6.4-8.2 g/dL] 6.9 g/dL (04/12/22 7:06 AM) Bilirubin Total [0.2-1.0 mg/dL] 0.5 mg/dL (04/12/22 7:06 AM) Alk Phos [46-146 unit/L] 78 unit/L (04/12/22 7:06 AM) CO2 [21-32 mmol/L] 29 mmol/L (04/12/22 7:06 AM) eGFR Non-AA [>=60] 97 (04/12/22 7:06 AM) eGFR AA [>=60] 97 (04/12/22 7:06 AM) Chloride Level [98-107 mmol/L] 103 mmol/L (04/12/22 7:06 AM) RF Qual [Negative] Negative (04/12/22 7:06 AM) Creatinine Level [0.55-1.02 mg/dL] 0.78 mg/dL (04/12/22 7:06 AM) Anion Gap [8-16 mmol/L] 7 mmol/L *LOW* (04/12/22 7:06 AM) Social History Social History Type Response Sex Female Patient Care team information PersonnelName: Shanel Troy Address: Address: [facility] [address] [place] [address]
[2022-05-30] MEDS: Normal Saline 1,000 ML 1000 ML IV (07:40)
[2022-05-30 07:50] LABS: Abs Immature Grans 0.03 10^3/uL (0.0-0.06); Absolute Basophil Count 0.04 10^3/uL (0.0-0.2); Absolute Eosinophil Count 0.38 10^3/uL (0.0-0.7); Absolute Lymphocyte Count 2.55 10^3/uL (1.2-3.4); Absolute Monocyte Count 0.74 10^3/uL (0.1-0.8); Absolute Neutrophil Count 4.26 10^3/uL (1.2-6.7); Basophils % 0.5; Eosinophils % 4.8; HCT 35.4 % (36.0-46.0); HGB 10.9 g/dL (11.2-15.7); Immature Grans % 0.4; Lymphocytes % 31.9; MCH 25.1 pg (27.0-33.0); MCHC 30.8 % (32.0-36.0); MCV 82 fL (80-95); MPV 7.9 fL (8.0-11.0); Monocytes % 9.3; Neutrophils % 53.1; Platelet Count 410 10^3/uL (130-400); RBC 4.34 10^6/uL (3.93-5.22); RDW 14.3 % (11.7-14.6); RDW-SD 42.5 fL
[2022-05-30 07:53] LABS: Bilirubin Negative (Negative); Blood Negative (Negative); Clarity Clear (Clear); Glucose Negative (Negative); Ketones Negative (Negative); Leukocyte Esterase Negative (Negative); Nitrite Negative (Negative); Specific Gravity >= 1.030 (1.005-1.025); Urobilinogen 0.2 EU/dL (Up TO 0.2)
[2022-05-30] MEDS: Normal Saline Flush 10 ML SYR IVP (08:09)
[2022-05-30] MEDS: Omnipaque 350 MG/ML 100 ML BTL IJ (08:10)
[2022-05-30 08:13] LABS: ALT 142 U/L (14-59); AST 72 U/L (15-37); Albumin 3.9 g/dL (3.4-5.0); Alkaline Phosphatase 102 U/L (46-116); Anion Gap 8.1 mmol/L (3-11); BUN 12 mg/dL (7-18); Bilirubin, Direct 0.1 mg/dL (0.0-0.2); Bilirubin, Total 0.5 mg/dL (0.2-1.0); CO2 30.9 mmol/L (21.0-32.0); CREATININE 0.7 mg/dL (0.55-1.02); Calcium 9.5 mg/dL (8.5-10.1); Chloride 102 mmol/L (98-107); Estimated GFR 109.98 (mL/min/1.73m2); Glucose 108 mg/dL (74-106); Lipase 156 U/L (73-393); Magnesium 1.8 mg/dL (1.8-2.4); Potassium 3.6 mmol/L (3.5-5.1); Sodium 141 mmol/L (136-145); Total Protein 7.8 g/dL (6.4-8.2)
--- NOTE | 2022-05-30 08:16 | ED.PROG_ITS ---
Date of service: 05/30/22 Time of Service: 08:00 Medical Decision Making 0800 -- Please see Dr. Ward's note for initial presentation, exam, and plan. Case endorsed to follow up on labs and imaging and final disposition. Labs reviewed. Normal white blood cell count. Hemoglobin 10, slightly down trended from 11 in September 2021. Normal electrolytes. Mild elevation of liver enzymes. Lipase within normal limits. Urinalysis notes high specific gravity but no evidence of infection. 09 --CT notes IMPRESSION: 1. The appendix measures 9 mm in diameter.? There is air within the appendix and no Radha appendiceal inflammatory changes are seen.? Appendicoliths are present.? No abscess or free air.? Please correlate clinically.? An early and appendicitis cannot be entirely excluded. 2. Complex right adnexal lesion suspicious for dermoid. 3. 4.1 x 4.3 cm hypoechoic mass which appears to be myometrial may represent a fibroid.? The possibility of an endometrial mass such as a polyp cannot be excluded.? Pelvic ultrasound may be obtained for further evaluation. 4. Cholelithiasis.? No biliary ductal dilatation. Patient assessed by me at bedside. She states her pain is mainly been in the left upper quadrant but occasionally radiates to her entire abdomen. Findings of her CT scan discussed. She states she has noted some pain in her right lower quadrant as well. Assessment of abdomen notes that her abdomen is obese, soft, mildly tender in the left upper and right lower quadrant but no rigidity or guarding. Case discussed and imaging reviewed with Dr. Card who does not see any evidence of appendicitis. Patient was given a dose of IV Tylenol here with significant improvement of her pain and she felt comfortable going home. She was advised to follow-up with her scheduled appointment with her primary care doctor later this month and follow-up with general surgery if her symptoms do not improve or worsen due to consideration of other possibilities including peptic ulcer disease, gastritis, GERD. She states she takes daily Pepcid. She was advised that she could stop taking Pepcid and start a daily Prilosec for 2 weeks. She was advised to return here immediately if she develops any fever, vomiting or worsening pain for reassessment of her symptoms at that time. Medical Records Medical records reviewed: Yes I reviewed the patient's medical records. Imaging Data Radiologic Study: Radiologist's impression: CT ABDOMEN ? PELVIS W CLINICAL HISTORY: ? left sided abdominal pain ? TECHNIQUE:? Imaging Protocol: Axial computed tomography images with coronal and sagittal reformatted images were created and reviewed CONTRAST MATERIAL:? Intravenous: Omnipaque 350 Contrast volume:100 mL Oral: No COMPARISON:? CT CT ABDOMEN ? PELVIS W from 10/17/2021 FINDINGS: ABDOMEN: Lung Bases: Normal where visualized. Liver: Normal density. No measurable mass. Portal, Superior Mesenteric, and Splenic Veins: Unremarkable.? Gallbladder and Biliary Tract: Cholelithiasis.? No biliary ductal dilatation.? Pancreas: Normal density, no abnormal calcifications or inflammatory process. Spleen: Normal. Adrenals: No masses seen. Kidneys: Normal size, contour and axis. No radiodense stones or obstructive uropathy. There are stable bilateral renal cysts.? No follow-up is recommended. Abdominal Aorta: Abdominal portion non-dilated. Mild atherosclerosis. Bowel: No evidence of bowel obstruction.? The appendix measures 9 mm in diameter.? There is air seen within the appendix.? Appendicoliths are present.? No Radha appendiceal inflammatory changes are seen.? Peritoneal Cavity: No ascites, collection or mesenteric inflammatory response.? No free air. Lymph Nodes: Within normal limits. Bones: Within normal limits for the patient's age.? Soft Tissues: Unremarkable. PELVIS: Bladder: Symmetric distention, no gross wall thickening. Reproductive Organs: There is a 4.1 x 4.3 cm mildly hypoechoic mass which appears to be myometrial.? This may reflect a fibroid.? It lies adjacent to the endometrium.? The possibility of a endometrial mass cannot be excluded.? There is a 4.6 x 3.0 cm right adnexal mass.? There is a cystic component and calcifications are also present.? There is a 2.7 x 3.0 cm left ovarian cyst. Lymph Nodes: Within normal limits. Bones: Within normal limits for the patient's age.? IMPRESSION: 1. The appendix measures 9 mm in diameter.? There is air within the appendix and no Radha appendiceal inflammatory changes are seen.? Appendicoliths are present.? No abscess or free air.? Please correlate clinically.? An early and appendicitis cannot be entirely excluded. 2. Complex right adnexal lesion suspicious for dermoid. 3. 4.1 x 4.3 cm hypoechoic mass which appears to be myometrial may represent a fibroid.? The possibility of an endometrial mass such as a polyp cannot be excluded.? Pelvic ultrasound may be obtained for further evaluation. 4. Cholelithiasis.? No biliary ductal dilatation. 5. Findings were discussed with Dr. Patel at 8:30 a.m. on 05/30/2022. Lab Data Lab results reviewed: Yes I reviewed the patient's lab results. Labs: Laboratory Tests Range/Units 05/30/22 05/30/22 05/30/22 07:29 07:37 07:37 WBC (4.4-10.8) 10^3/uL 8.00 RBC (3.93-5.22) 10^6/uL 4.34 Hgb (11.2-15.7) g/dL 10.9 L Hct (36.0-46.0) % 35.4 L MCV (80-95) fL 82 MCH (27.0-33.0) pg 25.1 L MCHC (32.0-36.0) % 30.8 L RDW (11.7-14.6) % 14.3 Plt Count (130-400) 10^3/uL 410 H MPV (8.0-11.0) fL 7.9 L Immature Gran % 0.4 Neutrophils % 53.1 Lymphocytes % 31.9 Monocytes % 9.3 Eosinophils % 4.8 Basophils % 0.5 Nucleated RBC % (0.0-0.3) % 0.0 Absolute Neutrophils (1.2-6.7) 10^3/uL 4.26 Absolute Lymphocytes (1.2-3.4) 10^3/uL 2.55 Absolute Monocytes (0.1-0.8) 10^3/uL 0.74 Absolute Eosinophils (0.0-0.7) 10^3/uL 0.38 Absolute Basophils (0.0-0.2) 10^3/uL 0.04 Sodium (136-145) mmol/L 141 Potassium (3.5-5.1) mmol/L 3.6 Chloride (98-107) mmol/L 102 Carbon Dioxide (21.0-32.0) mmol/L 30.9 Anion Gap (3-11) mmol/L 8.1 BUN (7-18) mg/dL 12 Creatinine (0.55-1.02) mg/dL 0.7 Est GFR (CKD-EPI 2020) (mL/min/1.73m2) 109.98 Glucose (74-106) mg/dL 108 H Calcium (8.5-10.1) mg/dL 9.5 Magnesium (1.8-2.4) mg/dL 1.8 Total Bilirubin (0.2-1.0) mg/dL 0.5 Conjugated Bilirubin (0.0-0.2) mg/dL 0.1 AST (15-37) U/L 72 H ALT (14-59) U/L 142 H Alkaline Phosphatase (46-116) U/L 102 Total Protein (6.4-8.2) g/dL 7.8 Albumin (3.4-5.0) g/dL 3.9 Lipase (73-393) U/L 156 Urine Color (Yellow) Yellow Urine Clarity (Clear) Clear Urine pH (5-8) 6.0 Ur Specific [place] (1.005-1.025) >= 1.030 H Urine Protein (Negative) mg/dL Negative Urine Ketones (Negative) mg/dL Negative Urine Blood (Negative) Negative Urine Nitrite (Negative) Negative Urine Bilirubin (Negative) Negative Urine Urobilinogen (Up TO 0.2) EU/dL 0.2 Ur Leukocyte Esterase (Negative) Negative Urine Glucose (Negative) mg/dL Negative Exam Const General: cooperative, healthy appearing and no acute distress Orientation: alert, awake and oriented x3 [facility]: normal to inspection Face and sinus: normal facial exam Eyes General: appearance normal, both eyes and all related structures Pupils: PERRL EOM: EOM intact bilaterally Neck Neck: normal visual inspection and No submandibular swelling Lymphatic: no lymphadenopathy noted Chest Chest: normal inspection of the chest and no tenderness Resp Effort & Inspection: normal respiratory effort and able to speak in complete sentences Auscultation: clear to auscultation bilaterally Cardio Rate: regular rate Rhythm: regular rhythm GI Inspection: normal to inspection Palpation: soft, not firm, not rigid and tender in the RLQ (minimal) and in the LUQ (minimal) Auscultation: hypoactive bowel sounds Back/Spine/Pelvis Thoracic/Lumbar Spine: thoracic and lumbar spine normal to inspection Pelvis: no pain with anterior-posterior compression Skin General skin exam: no rashes or lesions noted Neuro General: patient alert, patient awake and patient oriented x3 Cognition: normal cognition Speech: speech normal Motor: muscle tone normal throughout Sensory Exam: no sensory deficits noted Extrem General: normal to inspection, full ROM, capillary refill normal, no calf tenderness bilaterally and no edema Psych Appearance: grossly normal Mental Status: mental status grossly normal Speech and Movement: speech and movement normal Affect: normal affect Discharge Plan Disposition Patient Disposition: HOME Condition: Improving Discharge Details Clinical Impression: Abdominal pain Primary Care Provider: Shanel Troy ED Provider: Jaz Patel Home Meds and New Rx's Prescriptions: Continued famotidine 20 mg tablet 20 mg PO DAILY hydrochlorothiazide 25 mg tablet 25 mg PO DAILY Qty: 90 3RF atorvastatin 20 mg tablet 20 mg PO DAILY Qty: 90 1RF glimepiride 1 mg tablet 1 mg PO HS Qty: 90 1RF lisinopril 40 mg tablet 40 mg PO DAILY Qty: 90 1RF metformin 1,000 mg tablet 1,000 mg PO BID Qty: 180 1RF bupropion HCl [Wellbutrin XL] 150 mg tablet extended release 24 hr 150 mg PO QAM Qty: 30 3RF citalopram 40 mg tablet 40 mg PO DAILY Qty: 90 3RF glimepiride 2 mg tablet 2 mg PO QAM Qty: 90 1RF Rx Instructions: administer with breakfast Ozempic 1 mg/dose (4 mg/3 mL) pen injector See Rx Instructions .ROUTE .COMPLEX Qty: 6 1RF Dose Instruction: INJECT 2MG (TWO 1MG DOSES) SUBCUTANEOUSLY ONCE A WEEK Rx Instructions: INJECT 2MG (TWO 1MG DOSES) SUBCUTANEOUSLY ONCE A WEEK Discharge Instructions Instructions: Abdominal Pain (ED) Additional Instructions: Your blood tests showed that you had slight elevation of your liver enzymes. It is recommended that you have your liver enzymes re-checked by your primary care doctor. The remainder of your blood tests today are reassuring and show no evidence of acute concerning or significant findings. Your CT scan of your abdomen today was reviewed with surgery and shows no evidence of acute findings. Drink plenty of fluids and get plenty of rest. Take Tylenol as needed and directed for pain. You could stop taking Pepcid and start taking a daily [id number] Prilosec for the next 2 weeks. Follow-up with your upcoming scheduled appointment with your primary care doctor and for referral to general surgery for symptoms do not improve or worsen. Return immediately to the emergency department if you develop any worsening or new concerning symptoms. Stand Alone Forms: Work Release Referrals: Markus Card MD [ [facility] STAFF PHYSICIAN] - Discharge Data Discharge Physician: Jaz Patel
[2022-05-30] MEDS: ACETAMINOPHEN 1,000 MG/100 ML BTL 400 MG IVPB (09:45)
--- NOTE | 2022-05-30 10:34 | ED.PROG_ITS ---
Date of service: 05/30/22 Time of Service: 08:00 Medical Decision Making 0800 --please see Dr. Ward's note for initial presentation, exam and plan. Case endorsed to follow-up on labs and imaging and final disposition. Medical Records Medical records reviewed: Yes I reviewed the patient's medical records. Imaging Data Radiologic Study: Radiologist's impression: ?CT ABDOMEN ? PELVIS W CLINICAL HISTORY: ? left sided abdominal pain ? TECHNIQUE:? Imaging Protocol: Axial computed tomography images with coronal and sagittal reformatted images were created and reviewed CONTRAST MATERIAL:? Intravenous: Omnipaque 350 Contrast volume:100 mL Oral: No COMPARISON:? CT CT ABDOMEN ? PELVIS W from 10/17/2021 FINDINGS: ABDOMEN: Lung Bases: Normal where visualized. Liver: Normal density. No measurable mass. Portal, Superior Mesenteric, and Splenic Veins: Unremarkable.? Gallbladder and Biliary Tract: Cholelithiasis.? No biliary ductal dilatation.? Pancreas: Normal density, no abnormal calcifications or inflammatory process. Spleen: Normal. Adrenals: No masses seen. Kidneys: Normal size, contour and axis. No radiodense stones or obstructive uro willie. There are stable bilateral renal cysts.? No follow-up is recommended. Abdominal Aorta: Abdominal portion non-dilated. Mild atherosclerosis. Bowel: No evidence of bowel obstruction.? The appendix measures 9 mm in diameter.? There is air seen within the appendix.? Appendicoliths are present.? No Radha appendiceal inflammatory changes are seen.? Peritoneal Cavity: No ascites, collection or mesenteric inflammatory response.? No free air. Lymph Nodes: Within normal limits. Bones: Within normal limits for the patient's age.? Soft Tissues: Unremarkable. PELVIS: Bladder: Symmetric distention, no gross wall thickening. Reproductive Organs: There is a 4.1 x 4.3 cm mildly hypoechoic mass which appears to be myometrial.? This may reflect a fibroid.? It lies adjacent to the endometrium.? The possibility of a endometrial mass cannot be excluded.? There is a 4.6 x 3.0 cm right adnexal mass.? There is a cystic component and calcifications are also present.? There is a 2.7 x 3.0 cm left ovarian cyst. Lymph Nodes: Within normal limits. Bones: Within normal limits for the patient's age.? IMPRESSION: 1. The appendix measures 9 mm in diameter.? There is air within the appendix and no Radha appendiceal inflammatory changes are seen.? Appendicoliths are present.? No abscess or free air.? Please correlate clinically.? An early and appendicitis cannot be entirely excluded. 2. Complex right adnexal lesion suspicious for dermoid. 3. 4.1 x 4.3 cm hypoechoic mass which appears to be myometrial may represent a fibroid.? The possibility of an endometrial mass such as a polyp cannot be excluded.? Pelvic ultrasound may be obtained for further evaluation. 4. Cholelithiasis.? No biliary ductal dilatation. 5. Findings were discussed with Dr. Patel at 8:30 a.m. on 05/30/2022. Lab Data Lab results reviewed: Yes I reviewed the patient's lab results. Labs: Laboratory Tests Range/Units 05/30/22 05/30/22 05/30/22 07:29 07:37 07:37 WBC (4.4-10.8) 10^3/uL 8.00 RBC (3.93-5.22) 10^6/uL 4.34 Hgb (11.2-15.7) g/dL 10.9 L Hct (36.0-46.0) % 35.4 L MCV (80-95) fL 82 MCH (27.0-33.0) pg 25.1 L MCHC (32.0-36.0) % 30.8 L RDW (11.7-14.6) % 14.3 Plt Count (130-400) 10^3/uL 410 H MPV (8.0-11.0) fL 7.9 L Immature Gran % 0.4 Neutrophils % 53.1 Lymphocytes % 31.9 Monocytes % 9.3 Eosinophils % 4.8 Basophils % 0.5 Nucleated RBC % (0.0-0.3) % 0.0 Absolute Neutrophils (1.2-6.7) 10^3/uL 4.26 Absolute Lymphocytes (1.2-3.4) 10^3/uL 2.55 Absolute Monocytes (0.1-0.8) 10^3/uL 0.74 Absolute Eosinophils (0.0-0.7) 10^3/uL 0.38 Absolute Basophils (0.0-0.2) 10^3/uL 0.04 Sodium (136-145) mmol/L 141 Potassium (3.5-5.1) mmol/L 3.6 Chloride (98-107) mmol/L 102 Carbon Dioxide (21.0-32.0) mmol/L 30.9 Anion Gap (3-11) mmol/L 8.1 BUN (7-18) mg/dL 12 Creatinine (0.55-1.02) mg/dL 0.7 Est GFR (CKD-EPI 2020) (mL/min/1.73m2) 109.98 Glucose (74-106) mg/dL 108 H Calcium (8.5-10.1) mg/dL 9.5 Magnesium (1.8-2.4) mg/dL 1.8 Total Bilirubin (0.2-1.0) mg/dL 0.5 Conjugated Bilirubin (0.0-0.2) mg/dL 0.1 AST (15-37) U/L 72 H ALT (14-59) U/L 142 H Alkaline Phosphatase (46-116) U/L 102 Total Protein (6.4-8.2) g/dL 7.8 Albumin (3.4-5.0) g/dL 3.9 Lipase (73-393) U/L 156 Urine Color (Yellow) Yellow Urine Clarity (Clear) Clear Urine pH (5-8) 6.0 Ur Specific [place] (1.005-1.025) >= 1.030 H Urine Protein (Negative) mg/dL Negative Urine Ketones (Negative) mg/dL Negative Urine Blood (Negative) Negative Urine Nitrite (Negative) Negative Urine Bilirubin (Negative) Negative Urine Urobilinogen (Up TO 0.2) EU/dL 0.2 Ur Leukocyte Esterase (Negative) Negative Urine Glucose (Negative) mg/dL Negative Discharge Plan Disposition Patient Disposition: HOME Condition: Improving Discharge Details Clinical Impression: Abdominal pain Primary Care Provider: Shanel Troy ED Provider: Jaz Patel Home Meds and New Rx's Prescriptions: Continued famotidine 20 mg tablet 20 mg PO DAILY hydrochlorothiazide 25 mg tablet 25 mg PO DAILY Qty: 90 3RF atorvastatin 20 mg tablet 20 mg PO DAILY Qty: 90 1RF glimepiride 1 mg tablet 1 mg PO HS Qty: 90 1RF lisinopril 40 mg tablet 40 mg PO DAILY Qty: 90 1RF metformin 1,000 mg tablet 1,000 mg PO BID Qty: 180 1RF bupropion HCl [Wellbutrin XL] 150 mg tablet extended release 24 hr 150 mg PO QAM Qty: 30 3RF citalopram 40 mg tablet 40 mg PO DAILY Qty: 90 3RF glimepiride 2 mg tablet 2 mg PO QAM Qty: 90 1RF Rx Instructions: administer with breakfast Ozempic 1 mg/dose (4 mg/3 mL) pen injector See Rx Instructions .ROUTE .COMPLEX Qty: 6 1RF Dose Instruction: INJECT 2MG (TWO 1MG DOSES) SUBCUTANEOUSLY ONCE A WEEK Rx Instructions: INJECT 2MG (TWO 1MG DOSES) SUBCUTANEOUSLY ONCE A WEEK Discharge Instructions Instructions: Abdominal Pain (ED) Additional Instructions: Your blood tests showed that you had slight elevation of your liver enzymes. It is recommended that you have your liver enzymes re-checked by your primary care doctor. The remainder of your blood tests today are reassuring and show no evidence of acute concerning or significant findings. Your CT scan of your abdomen today was reviewed with surgery and shows no evidence of acute findings. Drink plenty of fluids and get plenty of rest. Take Tylenol as needed and directed for pain. You could stop taking Pepcid and start taking a daily [id number] Prilosec for the next 2 weeks. Follow-up with your upcoming scheduled appointment with your primary care doctor and for referral to general surgery for symptoms do not improve or worsen. Return immediately to the emergency department if you develop any worsening or new concerning symptoms. Referrals: Markus Card MD [ [facility] STAFF PHYSICIAN] - Discharge Data Discharge Physician: Jaz Patel
[2022-05-30 10:37] VITALS: BP 144/77; PULSE 80; RESP 20; TEMP 36.8; O2SAT 99
== END 2022-05-30 10:46 | disposition home or self-care (01) ==
PROVIDERS: Emergency Medicine; Emergency Provider Physician Assistant; PCP Nurse Practitioner
DX: R10.12 Left upper quadrant pain (principal); R10.31 Right lower quadrant pain; R74.01 Elevation of levels of liver transaminase levels
CPT/HCPCS: 36415; 80053; 81025; 83690; 96361; 96374; 99285; 74177; 81003; 82248; 83735; 85025; 99284; J0131; J3490

== ENCOUNTER 2022-06-14 01:43 | Outpatient (CLI) | payer OTHER, SELFPAY ==
[2022-06-14 08:24] LABS: HCT 32.5 % (36.0-46.0); HGB 10.2 g/dL (11.2-15.7); MCH 25.4 pg (27.0-33.0); MCHC 31.4 % (32.0-36.0); MCV 81 fL (80-95); MPV 7.8 fL (8.0-11.0); Platelet Count 388 10^3/uL (130-400); RBC 4.01 10^6/uL (3.93-5.22); RDW 14.6 % (11.7-14.6); WBC 9.15 10^3/uL (4.4-10.8)
[2022-06-14 08:26] LABS: ESR 10 mm/hr (0-20)
[2022-06-14 09:22] LABS: ALT 55 U/L (14-59); AST 26 U/L (15-37); Albumin 3.4 g/dL (3.4-5.0); Alkaline Phosphatase 92 U/L (46-116); BUN 14 mg/dL (7-18); Bilirubin, Total 0.5 mg/dL (0.2-1.0); CREATININE 0.7 mg/dL (0.55-1.02); Chloride 98 mmol/L (98-107); Ferritin 8 ng/mL (8-252); Glucose 235 mg/dL (74-106); Potassium 3.3 mmol/L (3.5-5.1); Sodium 135 mmol/L (136-145); Total Protein 7.1 g/dL (6.4-8.2); Vitamin B12 434 pg/mL (193-986)
== END 2022-06-14 01:44 | disposition home or self-care (01) ==
LOC: LBO 01:44
PROVIDERS: PCP Nurse Practitioner; Referring Provider Nurse Practitioner; Visit Provider Nurse Practitioner
DX: D64.9 Anemia, unspecified (principal); K80.20 Calculus of gallbladder without cholecystitis without obstruction; R79.89 Other specified abnormal findings of blood chemistry; R52 Pain, unspecified; R53.83 Other fatigue
CPT/HCPCS: 36415; 80053; 85027; 85652; 82607; 82728

== ENCOUNTER 2022-08-26 10:56 | Outpatient (CLI) | payer OTHER, SELFPAY ==
--- NOTE | 2022-08-26 10:45 | RT.EKG_ITS ---
APPROVED REPORT Exam: Resting ECG Reason for Exam: panic, chest pressure Patient Location: O HR:84 bpm ECG Measurements Heart Rate 84 AXIS OK 181 P 25 QRSd 90 QRS -19 QT 368 T 39 QTc 436 Conclusion Sinus rhythm...normal P axis, V-rate 50- 99 Left ventricular hypertrophy...multiple voltage criteria Possible Inferior infarct, old...Q >35mS, II III aVF
== END 2022-08-26 10:57 | disposition home or self-care (01) ==
LOC: DI.KIM 10:56
PROVIDERS: PCP Nurse Practitioner; Visit Provider Nurse Practitioner
DX: R07.89 Other chest pain (principal); R94.31 Abnormal electrocardiogram [ECG] [EKG]
CPT/HCPCS: 93010

== ENCOUNTER 2022-12-04 06:00 | Day surgery (SDC) | payer OTHER, SELFPAY ==
[2022-12-04] VITALS (8 sets, daily range): BP systolic 119–146; BP diastolic 76–97; PULSE 81–88; RESP 14–22; TEMP 36.4–37.5; O2SAT 92–97; BMI 38.9
--- NOTE | 2022-12-04 06:23 | W.ANESPRE ---
General Info Date of Service Date Performed: 12/04/22 Height: 5 ft 5 in Weight: 106 kg Body Mass Index (BMI): 38.9 Surgical Procedure: Operation Date: 12/04/22 07:40 Proposed Procedure Side Surgeon p Cholecystectomy Laparoscopic Susan Butcher MD Meds Allergies and Home Medications Allergies Allergy/AdvReac Type Severity Reaction Status Date / Time No Known Allergies Allergy Verified 12/04/22 06:13 Home Medication Medication Instructions Recorded citalopram 40 mg tablet 40 mg PO DAILY #90 tabs 12/12/21 glimepiride 2 mg tablet 2 mg PO QAM #90 tabs 06/10/22 semaglutide 2 mg/dose (8 mg/3 mL) 2 mg (0.75 mL) subcut QWEEK #3 mL 08/05/22 subcutaneous pen injector lisinopril 40 mg tablet 40 mg PO DAILY #90 tabs 08/20/22 atorvastatin 20 mg tablet 20 mg PO DAILY #90 tabs 09/16/22 hydrochlorothiazide 25 mg tablet 25 mg PO DAILY #90 tabs 11/06/22 metformin 1,000 mg tablet 1,000 mg PO BID #180 tabs 11/28/22 Current Visit Medications: Current Medications Generic Name Dose Route Start Last Admin Trade Name Freq PRN Reason Stop Dose Admin Acetaminophen 1,000 mg 12/04/22 06:00 Acetaminophen 500 Mg Tab PO 01/02/23 23:59 PREOP IFTIKHAR Celecoxib 200 mg 12/04/22 06:00 Celecoxib 200 Mg Cap PO 01/02/23 23:59 PREOP IFTIKHAR Gabapentin 600 mg 12/04/22 06:00 Gabapentin 300 Mg Cap PO 01/02/23 23:59 PREOP IFTIKHAR Ringer's Solution 1,000 mls @ 80 mls/hr 12/04/22 06:00 IV 01/02/23 23:59 INFUSION IFTIKHAR Cefazolin Sodium/Dextrose 2 gm in 50 mls @ 100 mls/hr 12/04/22 06:00 Ancef Duplex IVPB 01/02/23 23:59 PREOP IFTIKHAR IV Miscellaneous Supplies 1 each 12/04/22 06:00 Iv Access IV 01/02/23 23:59 DIRECTED IFTIKHAR Sodium Chloride 0 ml 12/04/22 06:00 Normal Saline Flush 10 Ml Syr IV 01/02/23 23:59 PRN PRN Sodium Chloride 0 ml 12/04/22 06:00 Normal Saline 10 Ml Vial IJ 01/02/23 23:59 DIRECTED PRN Sterile Water 0 ml 12/04/22 06:00 Water,Injection,Sterile 10 Ml Vial IJ 01/02/23 23:59 DIRECTED PRN PFSH Active Problems Active Problems: Problem Status Onset Code Diabetes E11.9 Biliary colic K80.50 Depression F32.A Hypertension I10 Hyperlipidemia E78.5 Dermatitis L30.9 Type 2 diabetes mellitus E11.9 Medical History Medical History Fracture closed, humerus Surgical History Surgical History History of placement of ear tubes Per patient skin graft and bones removed from her ear right. Tobacco Smoking/Tobacco Use Status: Former Tobacco Use Alcohol Alcohol Intake: never Substance Use Substance use: Never Substance use type: does not use Vital Signs and Lab Results Vital Signs Most Recent Vital Signs in EMR: Temp Pulse Resp BP Pulse Ox 36.4 C L 85 16 137/97 H 97 12/04/22 06:15 12/04/22 06:15 12/04/22 06:15 12/04/22 06:15 12/04/22 06:15 Lab Results Blood Type / Crossmatch: No Data to Display Complete Blood Count: No Data to Display Complete Metabolic Panel: No Data to Display Liver Function Panel: No Data to Display Coagulation Panel: No Data to Display Cardiac Panel: No Data to Display Arterial Blood Gas: No Data to Display Venous Blood Gas: No Data to Display Pancreas Panel: No Data to Display Thyroid Panel: No Data to Display Infectious Disease: No Data to Display Blood Cultures: No Data to Display Toxicology Panel: No Data to Display Panel: No Data to Display Imaging and Studies Imaging and Studies Study information below may be from another EMR and interpreted by another provider. Please see original notes in EMR for more complete details. EKG Summary: 09/12: sinus, LVH. Echocardiogram Summary: 2019 for cardiomegaly: LVEF 65%, LV wall thickness is normal, no LVOT. normal RVFxn, trace MR, trace TR. Anesthesia Assessment and Plan Anesthesia History Personal History: PONV Family History: No Family History of Anesthesia Complications Exercise Tolerance Exercise Tolerance: Metabolic Equivalents>4 Cardiac & Pulmonary Exam Cardiac Exam: Normal S1/S2 Heart Sounds Pulmonary Exam: Clear Bilateral Breath Sounds Implantable Cardiac Device Does patient have a Pacemaker or an ICD?: No Airway Exam Known Difficult Airway: No Mallampati Class: 3 Mouth Opening: Narrow (< 3cm) Thyromental Distance: Less than 3 cm Neck Range of Motion: Full ROM Neck Circumference: Thick Teeth Condition: Normal Dentition and Removable Dentures/Plates Upper ASA Classification ASA Score: ASA 3 Emergency Case?: No NPO Status NPO Status: NPO Clears >2 hours, Solids >8 hours Status Status: Negative HCG Anesthesia Plan Resuscitation Status: Full Code Anesthesia Technique: General Anesthesia Airway Planned: Endotracheal Tube Monitors Used: Standard Monitors Preoperative Comments:: 42 yo female with biliary colic for lap marixa. Sig PMHx: DM2 (glimepiride, metformin, semaglutide, ~180 this AM), HTN (HCTZ), depression, smoker (mostly quit. still does occasionally). Plan: ARTUR DAY (due to semaglutide)
--- NOTE | 2022-12-04 06:28 | ROE_ITS ---
Date of service: 12/04/22 Time of Service: 08:18 Operative Note Operative Note DATE OF PROCEDURE: 12/04/22 PRE-OP DIAGNOSIS: Biliary Colic POST-OP DIAGNOSIS: same PROCEDURE: Laparoscopic Colecystectomy SURGEON: Susan Butcher PHYSICIAN ASSISTANT PSYCHIATRY: Ad Vega ANESTHESIA TYPE: Local By Surgeon and General LMA/ETT Refer to Anesthesia Record PATHOLOGY: other (Gallbladder) COMPLICATIONS: None Patient was transported to: PACU Patient's condition: stable Indications: Sarina back to see me today because of her biliary colic which has been getting worse.? We spent some time again discussing the surgery.? I use a pamphlet with pictures to go over laparoscopic surgery as well as the possibility of open surgery.? We reviewed the complications.? At this point she has a good understanding of the risks, benefits and the complications of the surgery.? Risks, benefits, complications were reviewed with the patient in the office.? Complications include but are not limited to bleeding, infection, injury to stomach, small bowel and large bowel, injury to the pancreas, injury to the common bile duct necessitating drainage and referral to tertiary center for repair, bile leak, adverse reactions to the medications, complications of intubation including a sore throat or injury to the uvula, [place], stroke and even .? Questions were entertained and answered to her satisfaction. The patient seemed to have a good understanding of the complications and risks and stated that, and she wished to proceed.? No guarantees were given or implied. Findings: Normal appearing Gallbladder Procedure Description: After informed consent was obtained the patient was brought to the operating room, placed in a supine position and monitors were applied. SCDs were applied to her lower extremities and she was placed under general anesthesia and intubated without difficulty. Her abdomen was then prepped and draped in a sterile fashion using ChloraPrep. At this point a timeout was done and the patient's name, date of , procedure type, allergies to medications, metal in her body, antibiotic and DVT prophylaxis, and fire risk was assessed. Next 0.25% Bupivocaine was injected just above the umbilicus into the dermis and subcutaneous tissue. A 5 mm incision was made with an 11 blade. The skin next to the incision was grasped with penetrating towel clamps and while pulling up on the skin a 5 mm port was placed under direct visualization. The abdomen was insuflated and then 3 more ports were placed. A 12 mm port was placed in the subxiphoid area and two 5 mm ports were placed in the right upper quadrant. The liver was inspected and looked normal but slightly enlarged. The patient's bed was then turned to the left and her head was brought up. The gallbladder was grasped at the body and pushed towards the right shoulder, this allowed me to visualize the neck of the gallbladder. The neck was grasped and pulled towards the right flank and down allowing me to visualize the lymph node. Using a [place] dissector with cautery the lymph node was gently dissected away from the tissues and the fatty tissue was also dissected away. The cystic duct was identified it was normal in size. The duct was dissected 360 degrees using the [place] dissector in order for me to visualize its entrance into the gallbladder. Liver was noted behind it. There were no other structures right behind. Critical view was achieved. 3 clips were placed one proximal and 2 distal and the cystic duct was cut. The cystic artery was then identified and dissected 360 degrees. It was located just medial to the cystic duct. It was visualized going into the gallbladder. Once dissected 3 more clips were placed one proximal and 2 distal and the artery was cut. Using the hook dissector the gallbladder was then dissected away from the liver bed and placed into an Endo Catch bag and pulled through the 12 mm port site. The 12 mm port was placed back into the abdomen under direct visualization. The liver bed was inspected and no bleeding was noted. The abdomen was then irrigated with 500 cc of normal saline until the effluent was clear. Once all the fluid was suctioned out, 10 cc of 0.25% bupivocaine was injected above the liver for postop pain control. The 12 mm and the 2 right upper quadrant ports were removed under direct visualization and no bleeding was noted from the fascia. The abdomen was deflated completely and lastly the umbilical port was removed. The skin was cleaned. the 12 mm fascial defect was closed with a 0-vicryl figuere of eight stitch. and The dermis of all 4 incisions were closed with 4-0 Vicryl. The skin was dried and skin affix was applied over the closed incisions. Needle, instrument and sponge counts were correct at the end of the case. At this point the patient was woken up, extubated and taken back to recovery in stable condition. There were no immediate complications.
--- NOTE | 2022-12-04 06:28 | W.PM.PROGNOT ---
Date of Service Date of service: 12/04/22 Time of Service: 07:24 Assessment and Plan Assessment and plan (1) Biliary colic: Status: Acute Assessment and plan: I saw Sarina today in same-day surgery. She is doing well. We reviewed the risks, benefits and complications of a laparoscopic cholecystectomy. She has had no new symptoms. She denies any chest pain or shortness of breath. Risks, benefits, complications were reviewed with the patient in the office. Complications include but are not limited to bleeding, infection, injury to stomach, small bowel and large bowel, injury to the pancreas, injury to the common bile duct necessitating drainage and referral to tertiary center for repair, bile leak, adverse reactions to the medications, complications of intubation including a sore throat or injury to the uvula, [place], stroke and even . Questions were entertained and answered to her satisfaction and she wished to proceed. No guarantees were given or implied. Sarina has a good understanding of the risks and complications of the procedure. She wishes to proceed and has no other questions. Exam Const General: comfortable and no acute distress Nutritional Appearance: overweight HENKY Head: normocephalic and atraumatic Resp Effort & Inspection: normal respiratory effort Objective Last Vital Signs Temp 97.5 F L 12/04/22 06:15 Pulse 85 12/04/22 06:15 Resp 16 12/04/22 06:15 BP 137/97 H 12/04/22 06:15 Pulse Ox 97 12/04/22 06:15 Time Spent with Patient Time Spent with Patient: <25 minutes Time was spent: counseling the patient
--- NOTE | 2022-12-04 06:32 | PDOC.DSDIS_ITS ---
Date of service: 12/04/22 Time of Service: 06:32 Discharge Plan Disposition Patient Disposition: Home Condition: Stable Discharge Details Reason For Visit: Biliary colic Attending Provider: Susan Butcher Primary Care Provider: Shanel Troy Home Meds and New Rx's Prescriptions: Continued glimepiride 2 mg tablet 2 mg PO QAM Qty: 90 3RF Rx Instructions: administer with breakfast citalopram 40 mg tablet 40 mg PO DAILY Qty: 90 3RF semaglutide 2 mg/dose (8 mg/3 mL) pen injector 2 mg subcut QWEEK Qty: 3 3RF lisinopril 40 mg tablet 40 mg PO DAILY Qty: 90 3RF atorvastatin 20 mg tablet 20 mg PO DAILY Qty: 90 3RF hydrochlorothiazide 25 mg tablet 25 mg PO DAILY Qty: 90 3RF metformin 1,000 mg tablet 1,000 mg PO BID Qty: 180 3RF Discharge Instructions Instructions: Low Fat Diet (DC), Laparoscopic Cholecystectomy (DC) Additional Instructions: Activity at Home after surgery: 1. Make sure you walk outside at least 4 times per day 2. You should be able to climb a flight of stairs 3. No driving while in pain or taking pain medications 4. No strenuous activity or heavy lifting for 2 weeks (laparoscopic surgery) Diet, Nutrition, & wound healin. Avoid alcohol until after you are recovered from your surgery 2. Make sure to eat plenty of lean protein (meat, fish, eggs, cottage cheese, beans) 3. Eat a variety of fruits and vegetables. Eat plenty of high fiber foods to avoid constipation. 4. Drink plenty of liquids to stay hydrated and avoid constipation Pain Medications: 1. Tylenol 650mg every 6 hours as needed and Ibuprofen 600 mg every 6 hours as needed. You may alternate between the 2 medications every 3 hours 2. If a narcotic has been prescribed take as directed only for breakthrough pain For Constipation: 1. Take Milk of Magnesia or MiraLax as needed for constipation Other: 1. You may shower daily. Do not scrub the incisions 2. Do not soak the incisions for 1 week 3. You may alternate ice and heat as needed for pain and swelling Wound Care: 1. Keep the incisions clean and dry Please call our office if you develop: 1. Fevers >101.5 2. Nausea or Vomiting 3. Worsening pain 4. Redness and thick discharge from the wounds If after hours please call the Hospital at and ask to speak to the on-call surgeon Stand Alone Forms: Anesthesia Discharge Jeannette Tong (DSU) Referrals: Susan Butcher MD [ [facility] STAFF PHYSICIAN] - Activity:: as above Shower/Bathe:: 24 hours Diet:: low fat Discharge Orders Discharge Orders: Discharge Order (Routine); Ordered 12/04/22 Ordered By: Susan Butcher DS: Diagnosis Discharge Diagnosis (1) Biliary colic: Status: Acute Asessment and Plan: The patient is doing well post-op from their Laparoscopic Cholecystectomy surgery.? They are having no nausea or vomiting. They are tolerating liquids and a snack. The pt is not having any chest pain or SOB.? Their pain is adequately controlled. They have been able to urinate.? ?HEENT:? no eye pain/drainage/redness/swelling. Mild sore throat ?Cardio- NSR, no chest pain, BP stable- see VS record ?Pulm: no sob or productive cough. No hemoptysis ?Incision- dressing is c/d/i w/ no excessive bleeding or drainage ?I discussed with the patient the findings at the time of surgery and the patient?s progress. ?We reviewed expectations at home; what the patient could expect for recovery time, and in the post-operative period.? We discussed the importance of walking to avoid blood clots and pneumonia.? We discussed and reviewed the patient's post-operative wound care and dressing needs.?? We reviewed their step-arana pain management plan, Rx called to the pharmacy of their choice.? We reviewed activity and limitations-see discharge instructions. We reviewed warning signs, and when to seek medical attention- see d/c instructions.?? Patient was given a postoperative follow-up appointment. Patient verbalized understanding of their postoperative instructions, how do to take care of themselves and their incision, and the pain management plan. Please see discharge instructions.?
[2022-12-04] MEDS: Gabapentin 300 MG CAP 600 MG PO (06:51)
[2022-12-04] MEDS: Acetaminophen 500 MG TAB 1000 MG PO (06:51)
[2022-12-04] MEDS: Celecoxib 200 MG CAP PO (06:51)
[2022-12-04] MEDS: Lactated Ringers 1,000 ML 80 ML IV (07:20)
[2022-12-04] MEDS: ceFAZolin 2 GM/50 ML BAG IVPB (07:35)
[2022-12-04] MEDS: Bupivacaine 0.25% Pres-Free 30 ML VIAL (08:00)
--- NOTE | 2022-12-04 08:13 | GB_PTH ---
PATIENT: Sarina Nickerson LOC: [facility] U#:[id number] AGE/SX: 42/F ROOM: RE12/04/[address]: Susan Butcher MD : 1980 BED: DIS: 12/04/2022 SPEC #: [id number] RECD: 12/04/22 12:59 STATUS: KRISTEN REMateo #: [id number] CALEB: 12/04/22 08:[address]: Susan Butcher DEPT: Surgical Specimen RECD BY: Vivi Avila ENTERED: 12/04/22 13:00 SP TYPE: GB OTHR DR: Shanel Troy APRN Tissues: 1 - GALLBLADDER Procedures: GROSS AND MICRO LEVEL 3 Comments: [id number]
--- NOTE | 2022-12-04 09:07 | W.ANESPOSTOP ---
Postoperative Evaluation Date, Time and Location Date Performed: 12/04/22 Time Performed: 09:07 Patient Location: PACU Vital Signs Most Recent Imported Vital Signs: Most Recent Vital Signs Temp Pulse Resp BP Pulse Ox 36.5 C 81 17 141/90 H 92 12/04/22 08:55 12/04/22 08:55 12/04/22 08:55 12/04/22 08:55 12/04/22 08:55 Pain Score Most Recent Pain Score: Most Recent Pain Score Pain Level 0 12/04/22 06:15 Assessment Mental Status: Awake (Alert & Oriented to Patient Baseline) Airway and Respiratory Function: Patent airway with normal (patient baseline) respiratory exam Cardiovascular Function: Hemodynamically Stable Hydration Status: Adequately Hydrated Nausea & Vomiting: No Nausea or Vomiting Pain: Pain is tolerable per patient Peripheral Nerve Block: Patient did not receive a nerve block
== END 2022-12-04 10:43 | disposition home or self-care (01) ==
PROVIDERS: PCP Nurse Practitioner; Visit Provider Surgery
PROC: 0FT44ZZ Resection of Gallbladder, Percutaneous Endoscopic Approach (ICD-10-PCS; CPT 47562; principal; 2022-12-04 07:30)
DX: K80.10 Calculus of gallbladder with chronic cholecystitis without obstruction (principal); E11.9 Type 2 diabetes mellitus without complications; I10 Essential (primary) hypertension; E78.5 Hyperlipidemia, unspecified
CPT/HCPCS: 47562; 81025; 88304; J0690; J1100; J1885; J2250; J2405; J3475

== ENCOUNTER 2023-10-21 07:50 | Emergency (ER) | payer OTHER, SELFPAY ==
[2023-10-21] VITALS (7 sets, daily range): BP systolic 145–167; BP diastolic 72–79; PULSE 86–96; RESP 16–21; TEMP 36.7–36.8; O2SAT 98–99
--- NOTE | 2023-10-21 08:00 | RT.EKG_ITS ---
APPROVED REPORT Exam: Resting ECG Reason for Exam: Chest pain Patient Location: E HR:91 bpm ECG Measurements Heart Rate 91 AXIS MO 161 P 5 QRSd 81 QRS -21 QT 344 T 125 QTc 425 Conclusion Sinus rhythm...normal P axis, V-rate 60- 99 LVH with secondary repolarization abnormality...multi-LVH criteria, abnrm ST-T Inferior infarct, old...Q >35mS, II III aVF
--- NOTE | 2023-10-21 08:06 | DI.RAD_ITS ---
Exam(s) XR CHEST 2V PA LATERAL EXAM: XR CHEST 2V PA LATERAL CLINICAL HISTORY: Chest Pain. TECHNIQUE: 2D digital imaging was performed. COMPARISON: No exams were available for comparison FINDINGS: 2 views: Heart size is normal. The mediastinum is not widened. Lungs are clear. No infiltrates nor pleural effusions. IMPRESSION: No acute pulmonary findings. DATA REPOSITORY: RADIATION DOSE DELIVERED:
--- NOTE | 2023-10-21 08:07 | W.ED.GENAD ---
Discharge Plan Disposition Patient Disposition: Home Condition: Stable Discharge Details Clinical Impression: Hyperglycemia due to type 2 diabetes mellitus, Iron deficiency anemia Primary Care Provider: Shanel Troy ED Provider: Veronika Russell Home Meds and New Rx's Prescriptions: New ferrous sulfate 325 mg (65 mg iron) tablet,delayed release (DR/EC) 325 mg PO DAILY Qty: 30 1RF Rx Instructions: Please take one tablet by mouth daily Continued glimepiride 4 mg tablet 4 mg PO DAILY Qty: 90 3RF metformin 1,000 mg tablet 1,000 mg PO BID Qty: 180 3RF hydrochlorothiazide 25 mg tablet 25 mg PO DAILY Qty: 90 3RF citalopram 40 mg tablet 40 mg PO DAILY Qty: 90 3RF bupropion HCl [Wellbutrin XL] 150 mg tablet extended release 24 hr 150 mg PO QAM Qty: 90 3RF lisinopril 40 mg tablet 40 mg PO DAILY Qty: 90 3RF atorvastatin 20 mg tablet 20 mg PO DAILY Qty: 90 3RF Discharge Instructions Instructions: Anemia (ED), Diabetic Hyperglycemia (ED) Additional Instructions: Labs show you have iron deficiency anemia. This could explain your symptoms. Follow up with primary care provider in 3-5 days. Return to ED sooner if any worsening or concerns. A iron supplement was sent to the pharmacy on file. Please take as prescribed. Your blood sugar today was 329, please discuss this with your primary care provider. Increase oral fluids. Referrals: Shanel Troy, [employer] [Primary Care Provider] - 3 days HPI General Mode of arrival: ambulatory. Date/Time Provider Initiated Documentation: 10/21/23 07:55. Limitations to Documentation: no limitations. Information obtained by: patient, RN notes reviewed and old records reviewed. HPI Narrative: 43-year-old female reports just generally not feeling well over the last 4 days. She has multiple complaints including intermittent right-sided frontal headache, chest pains intermittently, nausea dizziness blurry vision. And fatigue. She denies any abdominal pain. Past medical history includes diabetes, hypertension and high cholesterol, surgical history includes cholecystectomy. She denies any drugs alcohol or smoking. She is alert and oriented x 4. Related Data Home Medications Medication Instructions Recorded Confirmed bupropion HCl 150 mg 24 hr tablet, 150 mg PO QAM #90 tabs 12/04/23 04/02/24 extended release (Wellbutrin XL) atorvastatin 20 mg tablet 20 mg PO DAILY #90 tabs 08/05/23 10/21/23 lisinopril 40 mg tablet 40 mg PO DAILY #90 tabs 08/05/23 10/21/23 citalopram 40 mg tablet 40 mg PO DAILY #90 tabs 10/20/23 10/21/23 glimepiride 4 mg tablet 4 mg PO DAILY #90 tabs 10/20/23 10/21/23 hydrochlorothiazide 25 mg tablet 25 mg PO DAILY #90 tabs 10/20/23 10/21/23 metformin 1,000 mg tablet 1,000 mg PO BID #180 tabs 10/20/23 10/21/23 ferrous sulfate 325 mg (65 mg 325 mg PO DAILY #30 tabs 10/21/23 iron) tablet,delayed release Previous Rx's Medication Instructions Recorded bupropion HCl 150 mg 24 hr tablet, 150 mg PO QAM #90 tabs 06/23/23 extended release (Wellbutrin XL) atorvastatin 20 mg tablet 20 mg PO DAILY #90 tabs 08/05/23 lisinopril 40 mg tablet 40 mg PO DAILY #90 tabs 08/05/23 citalopram 40 mg tablet 40 mg PO DAILY #90 tabs 10/20/23 glimepiride 4 mg tablet 4 mg PO DAILY #90 tabs 10/20/23 hydrochlorothiazide 25 mg tablet 25 mg PO DAILY #90 tabs 10/20/23 metformin 1,000 mg tablet 1,000 mg PO BID #180 tabs 10/20/23 ferrous sulfate 325 mg (65 mg 325 mg PO DAILY #30 tabs 10/21/23 iron) tablet,delayed release Allergies Allergy/AdvReac Type Severity Reaction Status Date / Time No Known Allergies Allergy Verified 10/21/23 07:58 General Stated Complaint: GenMedical MARITZA: 4 Review of Systems All systems reviewed & are unremarkable except as noted in HPI and below Constitutional Constitutional: Reports as per HPI, Reports fatigue and Reports headache(s) ENT Ears, Nose, Mouth, and Throat: Reports headache(s) Cardiovascular Cardiovascular: Reports chest pain and Denies dyspnea Respiratory Respiratory: Denies dyspnea Gastrointestinal Gastrointestinal: Denies abdominal pain, Denies diarrhea, Reports nausea and Denies vomiting Genitourinary Genitourinary: Denies dysuria Neurologic Neurologic: Reports headache(s) Endocrine Endocrine: Reports fatigue Exam Narrative Exam Narrative: Constitutional: Alert and oriented x3. Appears stated age. Obese body habitus. Head: Normocephalic, no trauma. Eyes: Pupils PERRL, Red reflex noted, EOM's intact. Eyelids symmetrical without lesions, discharge, or swelling. ENT: Bilateral TM's WNL, External ear normal to inspection, no mastoid TTP, swelling, or erythema, Nasal turbinates WNL, no nasal discharge. Normal dentition, Posterior pharynx WNL, no exudate. Chest: RRR, Normal S1, S2, distal pulses intact. Resp: Lungs clear to auscultation bilaterally, no wheezes, rales, or rhonchi. Abdomen: Soft, non-distended, Normoactive bowel sounds all 4 quads. Musculoskeletal: Normal gait, moves all 4 extremities without difficulty. Skin: No suspicious rashes or lesions. Capillary refill less than 2 sec. Neurologic: Cranial nerves II-XII intact. Alert and oriented x 3. Motor: No deficits noted. Sensory: Intact bilaterally all 4 extremities. Hematologic/Lymphatic: No ecchymosis, no lymphadenopathy. Course Vital Signs Vital signs: Vital Signs Temperature 36.8 C 10/21/23 07:53 Pulse 96 H 10/21/23 07:53 Respiratory Rate 16 10/21/23 07:53 Blood Pressure 167/79 H 10/21/23 07:53 Pulse Oximetry 99 10/21/23 07:53 Temperature 36.8 C 10/21/23 07:53 Temperature Source Tympanic 10/21/23 07:53 Pulse 96 H 10/21/23 07:53 Respiratory Rate 18 10/21/23 07:56 Respiratory Effort Normal 10/21/23 07:56 Respiratory Depth Normal 10/21/23 07:56 Respiratory Pattern Normal 10/21/23 07:56 Blood Pressure 167/79 H 10/21/23 07:53 Blood Pressure Position Sitting 10/21/23 07:53 Pulse Oximetry 99 10/21/23 07:53 Oxygen Delivery Method Room Air 10/21/23 07:53 Oxygen Flow Rate 0 10/21/23 07:53 Pain Level 0 10/21/23 07:53 Medical Decision Making 43-year-old female reports just generally not feeling well over the last 4 days. She has multiple complaints including intermittent right-sided frontal headache, chest pains intermittently, nausea dizziness blurry vision. And fatigue. She denies any abdominal pain. Past medical history includes diabetes, hypertension and high cholesterol, surgical history includes cholecystectomy. She denies any drugs alcohol or smoking. She is alert and oriented x 4. General workup ordered including CBC CMP, troponins, lipase, urinalysis TSH chest x-ray and EKG. Patient is anemic, hemoglobin 9.2 with hematocrit 31, iron and ferritin added onto labs, glucose is 329 iron is low at 20, troponin negative. Urinalysis shows 15 ketones, greater than thousand glucose. Chest x-ray within normal limits. Will discuss iron deficiency anemia. Will refer to PCP. I will place patient on iron supplement. Discussed lab findings with patient including and high blood sugar and anemia. Discussed prescription. Discussed close follow-up with PCP and strict return instructions. She verbalized understanding. Patient made hemodynamically stable slightly hypertensive upon discharge. This text was generated using [employer] system, please disregard any oddities of phrase or misspellings. Medical Records Medical records reviewed: Yes I reviewed the patient's medical records. Lab Data Lab results reviewed: Yes I reviewed the patient's lab results. Labs: Laboratory Tests Range/Units 10/21/23 10/21/23 10/21/23 08:12 08:15 11:06 WBC (4.4-10.8) 10^3/uL 9.35 RBC (3.93-5.22) 10^6/uL 4.64 Hgb (11.2-15.7) g/dL 9.2 L Hct (36.0-46.0) % 31.9 L MCV (80-95) fL 69 L MCH (27.0-33.0) pg 19.8 L MCHC (32.0-36.0) % 28.8 L RDW (11.7-14.6) % 17.6 H Plt Count (130-400) 10^3/uL 475 H MPV (8.0-11.0) fL 7.9 L Immature Gran % 1.0 Neutrophils % 56.6 Lymphocytes % 30.2 Monocytes % 8.0 Eosinophils % 3.7 Basophils % 0.5 Nucleated RBC % (0.0-0.3) % 0.0 Absolute Neutrophils (1.2-6.7) 10^3/uL 5.29 Absolute Lymphocytes (1.2-3.4) 10^3/uL 2.82 Absolute Monocytes (0.1-0.8) 10^3/uL 0.75 Absolute Eosinophils (0.0-0.7) 10^3/uL 0.35 Absolute Basophils (0.0-0.2) 10^3/uL 0.05 RBC Morphology See Below Hypochromasia 1+ Poikilocytosis 1+ Microcytosis 2+ Sodium (136-145) mmol/L 138 Potassium (3.5-5.1) mmol/L 4.1 Chloride (98-107) mmol/L 99 Carbon Dioxide (21.0-32.0) mmol/L 28.4 Anion Gap (3-11) mmol/L 10.6 BUN (7-18) mg/dL 22 H Creatinine (0.55-1.02) mg/dL 0.8 Est GFR (CKD-EPI 2020) (mL/min/1.73m2) 92.54 Glucose (74-106) mg/dL 329 H Calcium (8.5-10.1) mg/dL 9.1 Magnesium (1.8-2.4) mg/dL 1.9 Iron (50-170) ug/dL 20 L Ferritin (8-252) ng/mL 5 L Total Bilirubin (0.2-1.0) mg/dL 0.4 AST (15-37) U/L 16 ALT (14-59) U/L 37 Alkaline Phosphatase (46-116) U/L 84 Troponin I (< or =60) ng/L < 50 Cancelled Total Protein (6.4-8.2) g/dL 7.5 Albumin (3.4-5.0) g/dL 3.6 Lipase (16-77) U/L 66 TSH (0.36-3.74) uIU/mL 1.64 Urine Color (Yellow) Yellow Urine Clarity (Clear) Clear Urine pH (5-8) 5.5 Ur Specific [employer] (1.005-1.025) 1.020 Urine Protein (Neg-Trace) mg/dL Negative Urine Ketones (Negative) mg/dL 15 H Urine Blood (Negative) Negative Urine Nitrite (Negative) Negative Urine Bilirubin (Negative) Negative Urine Urobilinogen (Up to 0.2) mg/dL 0.2 Ur Leukocyte Esterase (Negative) Negative Urine RBC (0-2) HPF Negative Urine WBC (0-5) HPF Negative Ur Epithelial Cells (Negative) HPF Few Urine Crystals (Negative) HPF Negative Urine Bacteria (Negative) HPF Negative Urine Casts (Negative) LPF Negative Urine Mucus (Negative) Negative Ur Culture Indicated? No Urine Glucose (Negative) mg/dL >=1000 H Quality:SDOH Health Related Social Needs: No Data to Display PFSH All Active Problems (Updated 10/21/23 @ 09:14 by Veronika Russell NP) Iron deficiency anemia (Acute) Hyperglycemia due to type 2 diabetes mellitus (Acute) Fibroid uterus (Acute) 4cm. incidental finding on u/s. Stress incontinence (Chronic) mild to mod. needs pad Mood changes (Acute) Biliary colic (Acute) Depression (Chronic) Hypertension (Chronic) Hyperlipidemia (Acute) Dermatitis (Acute) Type 2 diabetes mellitus (Acute) Medical History Fracture closed, humerus Surgical History S/P cholecystectomy (~12/04/22) Dr Butcher History of placement of ear tubes Per patient skin graft and bones removed from her ear right. Family History Daughter Substance use disorder Asthma Anxiety Other Breast cancer Cancer Colon cancer Depression Diabetes Hypertension Social History Smoking/Tobacco Use Status: Former Tobacco Use Quit Date: 09/18/21 Tobacco: How many years used: 20 Quit status: has quit before Smoking risk assessment performed?: Yes Alcohol Intake: never Drug use: Never Substance use type: does not use Adopted: No Caregiver/Support person: No Foster care: No Household members: spouse and other Details: Ha Housing: house Number of Children: 3 number of grandchildren: 4 Communication Needs: Corrective Lenses Education Level: college Details: Associate's Degree Do you need help understanding health information?: Rarely current occupation: [employer] me[employer]. works with her . Pets and animals: Yes Pets and animals: cat(s) and dog(s) Sexually active: Yes Do you think of yourself as: straight/heterosexual Current gender identity: female What is your relationship status?: How often do you talk on the phone with friends or family?: three or more times per week How often do you get together with friends or relatives?: once per week Do you belong to any clubs or organized social groups?: no Panel score (0-1 are the most socially isolated patients): 2 What type of physical activity do you participate in: none Alivia/Episcopalian: Scientologist Special alivia needs: No Seatbelt use: always Helmet use: Yes Helmet use: always Drive intox or ride w/intox light truck driver: No Working smoke detector in home: Yes Fire extinguisher in home: Yes Carbon monox detector in home: Yes Do you feel safe at home: Yes Do you feel safe in your relationship?: Yes Victim of physical abuse: No History History 3 Para Hx # Term Pregnancies 3 Multiple births Hx # Pregnancies Ectopic pregnancies AB induced Hx Number of Living Children 3 AB spontaneous Past Pregnancies Del. Date GA/Weeks # Preg Succ Route Wgt Sex Labor Lgth Anesthesia Location [facility] 10/21/96 37 No Yes vaginal 3090.098 g Female [place] 04/05/99 40 No Yes vaginal 3345.244 g Female [facility] 01/14/03 40 No Yes vaginal 3600.389 g Male [facility] Delivery Date: 10/21/96 Last Updated by: Samantha Kovacs MD [place] Delivery Date: 04/05/99 Last Updated by: Samantha Kovacs MD [place] Delivery Date: 01/14/03 Last Updated by: Samantha Kovacs MD [place]
[2023-10-21 08:28] LABS: Abs Immature Grans 0.09 10^3/uL (0.0-0.06); Absolute Basophil Count 0.05 10^3/uL (0.0-0.2); Absolute Eosinophil Count 0.35 10^3/uL (0.0-0.7); Absolute Lymphocyte Count 2.82 10^3/uL (1.2-3.4); Absolute Monocyte Count 0.75 10^3/uL (0.1-0.8); Absolute Neutrophil Count 5.29 10^3/uL (1.2-6.7); Basophils % 0.5; Eosinophils % 3.7; HCT 31.9 % (36.0-46.0); HGB 9.2 g/dL (11.2-15.7); Lymphocytes % 30.2; MCH 19.8 pg (27.0-33.0); MCHC 28.8 % (32.0-36.0); MCV 69 fL (80-95); MPV 7.9 fL (8.0-11.0); Neutrophils % 56.6; Platelet Count 475 10^3/uL (130-400); RBC 4.64 10^6/uL (3.93-5.22); RDW 17.6 % (11.7-14.6); RDW-SD 42.8 fL; WBC 9.35 10^3/uL (4.4-10.8)
[2023-10-21 08:43] LABS: Bilirubin Negative (Negative); Blood Negative (Negative); Clarity Clear (Clear); Glucose >=1000 mg/dL (Negative); Ketones 15 mg/dL (Negative); Leukocyte Esterase Negative (Negative); Nitrite Negative (Negative); Urobilinogen 0.2 mg/dL (Up to 0.2); pH 5.5 (5-8)
[2023-10-21 08:45] LABS: Diff Comment RBC Morph Reviewed; Hypochromasia 1+; Microcytosis 2+; Poikilocytes 1+
[2023-10-21 08:54] LABS: Bacteria Negative HPF (Negative); C & S Indicated? No; Casts Negative LPF (Negative); Crystals Negative HPF (Negative); Epithelial Cells Few HPF (Negative); Mucus Negative (Negative); RBC Negative HPF (0-2); WBC Negative HPF (0-5)
[2023-10-21 08:59] LABS: ALT 37 U/L (14-59); AST 16 U/L (15-37); Albumin 3.6 g/dL (3.4-5.0); Alkaline Phosphatase 84 U/L (46-116); Anion Gap 10.6 mmol/L (3-11); BUN 22 mg/dL (7-18); Bilirubin, Total 0.4 mg/dL (0.2-1.0); CO2 28.4 mmol/L (21.0-32.0); CREATININE 0.8 mg/dL (0.55-1.02); Calcium 9.1 mg/dL (8.5-10.1); Chloride 99 mmol/L (98-107); Estimated GFR 92.54 (mL/min/1.73m2); Glucose 329 mg/dL (74-106); Lipase 66 U/L (16-77); Magnesium 1.9 mg/dL (1.8-2.4); Potassium 4.1 mmol/L (3.5-5.1); Sodium 138 mmol/L (136-145); TSH (W/Ref FT4) 1.64 uIU/mL (0.36-3.74); Total Protein 7.5 g/dL (6.4-8.2); Troponin I < 50 ng/L (< or =60)
[2023-10-21 09:08] LABS: Iron 20 ug/dL (50-170)
[2023-10-21 09:22] LABS: Ferritin 5 ng/mL (8-252)
== END 2023-10-21 09:43 | disposition home or self-care (01) ==
PROVIDERS: Emergency Provider Registered Nurse Emergency; PCP Nurse Practitioner
DX: E11.65 Type 2 diabetes mellitus with hyperglycemia (principal); D50.9 Iron deficiency anemia, unspecified; I10 Essential (primary) hypertension; E78.00 Pure hypercholesterolemia, unspecified; Z79.84 Long term (current) use of oral hypoglycemic drugs; Z90.49 Acquired absence of other specified parts of digestive tract; Z87.891 Personal history of nicotine dependence
CPT/HCPCS: 36415; 80053; 83690; 93005; 99285; 71046; 81003; 81015; 82728; 83540; 83735; 84443; 84484; 85025; 93010; 99284

== ENCOUNTER 2023-11-17 06:49 | Emergency (ER) | payer OTHER, SELFPAY ==
[2023-11-17] VITALS (16 sets, daily range): BP systolic 158; BP diastolic 74; PULSE 69–87; RESP 12–27; TEMP 36.7; O2SAT 95–98
--- NOTE | 2023-11-17 07:30 | RT.EKG_ITS ---
APPROVED REPORT Exam: Resting ECG Reason for Exam: presyncope Patient Location: E HR:75 bpm ECG Measurements Heart Rate 75 AXIS AL 170 P 10 QRSd 96 QRS -21 QT 380 T 0 QTc 425 Conclusion Sinus rhythm...normal P axis, V-rate 60- 99 Left ventricular hypertrophy...multiple voltage criteria
--- NOTE | 2023-11-17 07:30 | DI.CT_ITS ---
Exam(s) CT HEAD - STROKE PROTOCOL EXAM: CT HEAD - STROKE PROTOCOL CLINICAL HISTORY: right foot paresthesia today; mild RANDHAWA; presyncope. TECHNIQUE: Imaging Protocol: Axial computed tomography images with coronal and sagittal reformatted images were created and reviewed COMPARISON: No exams were available for comparison FINDINGS: There are no skull fractures. There is no fluid in the visualized paranasal sinuses. There is eviden ce of previous right mastoid surgery. There is no evidence of intracranial hemorrhage, mass effect, or shift of midline structures. There are no extra-axial fluid collections. The ventricles are not enlarged or shifted and there is no blo od within the ventricular system nor within the basal cisterns. IMPRESSION: No acute intracranial findings on this noninfused CT scan of the brain. Evidence of previous right mastoidectomy. Left mastoid air cells are unremarkable Other paranasal sinuses are clear. If clinically indicated follow-up MRI can be performed Called by myself to ER physician 11/17/2023 8:12 a.m. RADIATION DOSE DELIVERED: 764.12mGy.cm Total DLP DATA REPOSITORY: All CT scans at this facility are submitted to the National Radiology Data Registry (NRDR) Dose Index Registry (DIR) with the [employer] (ACR). RADIATION OPTIMIZATION: All CT scans at this facility use at least one of these dose optimization te chniques: automated exposure control; mA and/or kV adjustment per patient size (includes targeted exa ms where dose is matched to clinical indication); or iterative reconstruction.
--- NOTE | 2023-11-17 07:36 | W.ED.GENAD ---
Discharge Plan Disposition Patient Disposition: Home Condition: Stable Discharge Details Clinical Impression: Paresthesia of right foot, Pre-syncope Primary Care Provider: Shanel Troy ED Provider: Mushtaq Cheney Home Meds and New Rx's Prescriptions: Continued glimepiride 4 mg tablet 4 mg PO DAILY Qty: 90 3RF metformin 1,000 mg tablet 1,000 mg PO BID Qty: 180 3RF hydrochlorothiazide 25 mg tablet 25 mg PO DAILY Qty: 90 3RF citalopram 40 mg tablet 40 mg PO DAILY Qty: 90 3RF bupropion HCl [Wellbutrin XL] 150 mg tablet extended release 24 hr 150 mg PO QAM Qty: 90 3RF lisinopril 40 mg tablet 40 mg PO DAILY Qty: 90 3RF atorvastatin 20 mg tablet 20 mg PO DAILY Qty: 90 3RF ferrous sulfate 325 mg (65 mg iron) tablet,delayed release (DR/EC) 325 mg PO DAILY Qty: 90 3RF Rx Instructions: Please take one tablet by mouth daily cholecalciferol (vitamin D3) 50 mcg (2,000 unit) capsule 50 mcg PO DAILY Qty: 90 3RF mecobalamin (vitamin B12) 1,000 mcg tablet,chewable 1,000 mcg PO DAILY Qty: 90 3RF No Action Ozempic 0.25 mg or 0.5 mg (2 mg/3 mL) pen injector 0.5 mg subcut QWEEK Qty: 3 0RF Rx Instructions: for 4 weeks Ozempic 1 mg/dose (4 mg/3 mL) pen injector 1 mg subcut QWEEK Qty: 3 0RF Rx Instructions: After completion of the 0.5 mg dose for 4 weeks. Ozempic 2 mg/dose (8 mg/3 mL) pen injector 2 mg subcut QWEEK Qty: 3 0RF Rx Instructions: After completion of the 1mg dose for 4 weeks. Discharge Instructions Instructions: Paresthesia (ED), Near Syncope (ED) Additional Instructions: Please contact your primary care physician to arrange follow-up. Call today. Please rest at home today and tomorrow. No exertional activity until cleared by your doctor. No driving or operating heavy machinery until cleared by your doctor. Return to the ER immediately for any worsening or new concerning symptoms. Stand Alone Forms: Work Release Referrals: Shanel Troy, NICOLE [Primary Care Provider] - Discharge Data Discharge Date/Time-TO BE ENTERED AT DEPARTURE: 11/17/23 11:11 HPI General Mode of arrival: ambulatory. Date/Time Provider Initiated Documentation: 11/17/23 06:52. Limitations to Documentation: no limitations. Information obtained by: patient. HPI Narrative: 43-year-old female presents with chief complaint of right foot numbness. Patient notes that she woke up today with new onset of right foot numbness. Patient states it feels like her foot is asleep. Symptoms are intermittent since onset. Seems to wax and wane. No associated weakness. No other neurologic deficits. She does note some mild headache today. Patient also notes concern of 3-4 presyncopal episodes today. Patient states she feels like she is going to pass out intermittently. This has occurred when she bent over this morning and then at rest while sitting. She is concerned that she may be mildly dehydrated. Patient denies associated chest pain or abdominal pain. Related Data Home Medications Medication Instructions Recorded Confirmed bupropion HCl 150 mg 24 hr tablet, 150 mg PO QAM #90 tabs 06/23/23 11/17/23 extended release (Wellbutrin XL) atorvastatin 20 mg tablet 20 mg PO DAILY #90 tabs 08/05/23 11/17/23 lisinopril 40 mg tablet 40 mg PO DAILY #90 tabs 08/05/23 11/17/23 citalopram 40 mg tablet 40 mg PO DAILY #90 tabs 10/20/23 11/17/23 glimepiride 4 mg tablet 4 mg PO DAILY #90 tabs 10/20/23 11/17/23 hydrochlorothiazide 25 mg tablet 25 mg PO DAILY #90 tabs 10/20/23 11/17/23 metformin 1,000 mg tablet 1,000 mg PO BID #180 tabs 10/20/23 11/17/23 cholecalciferol (vitamin D3) 50 50 mcg PO DAILY #90 caps 11/04/23 11/17/23 mcg (2,000 unit) capsule ferrous sulfate 325 mg (65 mg 325 mg PO DAILY #90 tabs 11/04/23 11/17/23 iron) tablet,delayed release mecobalamin (vitamin B12) 1,000 1,000 mcg PO DAILY #90 tabs 04/16/24 04/29/24 mcg chewable tablet semaglutide 0.25 mg or 0.5 mg (2 0.5 mg (0.736 mL) subcut QWEEK #3 11/18/23 11/18/23 mg/3 mL) subcutaneous pen injector mL (Ozempic) semaglutide 1 mg/dose (4 mg/3 mL) 1 mg (0.75 mL) subcut QWEEK #3 mL 11/18/23 11/18/23 subcutaneous pen injector (Ozempic) semaglutide 2 mg/dose (8 mg/3 mL) 2 mg (0.75 mL) subcut QWEEK #3 mL 11/18/23 11/18/23 subcutaneous pen injector (Ozempic) Previous Rx's Medication Instructions Recorded bupropion HCl 150 mg 24 hr tablet, 150 mg PO QAM #90 tabs 06/23/23 extended release (Wellbutrin XL) atorvastatin 20 mg tablet 20 mg PO DAILY #90 tabs 08/05/23 lisinopril 40 mg tablet 40 mg PO DAILY #90 tabs 08/05/23 citalopram 40 mg tablet 40 mg PO DAILY #90 tabs 10/20/23 glimepiride 4 mg tablet 4 mg PO DAILY #90 tabs 10/20/23 hydrochlorothiazide 25 mg tablet 25 mg PO DAILY #90 tabs 10/20/23 metformin 1,000 mg tablet 1,000 mg PO BID #180 tabs 10/20/23 cholecalciferol (vitamin D3) 50 50 mcg PO DAILY #90 caps 11/04/23 mcg (2,000 unit) capsule ferrous sulfate 325 mg (65 mg 325 mg PO DAILY #90 tabs 11/04/23 iron) tablet,delayed release mecobalamin (vitamin B12) 1,000 1,000 mcg PO DAILY #90 tabs 11/04/23 mcg chewable tablet semaglutide 0.25 mg or 0.5 mg (2 0.5 mg (0.736 mL) subcut QWEEK #3 11/18/23 mg/3 mL) subcutaneous pen injector mL (Ozempic) semaglutide 1 mg/dose (4 mg/3 mL) 1 mg (0.75 mL) subcut QWEEK #3 mL 11/18/23 subcutaneous pen injector (Ozempic) semaglutide 2 mg/dose (8 mg/3 mL) 2 mg (0.75 mL) subcut QWEEK #3 mL 11/18/23 subcutaneous pen injector (Ozempic) Allergies Allergy/AdvReac Type Severity Reaction Status Date / Time No Known Allergies Allergy Verified 11/18/23 15:09 General Stated Complaint: Orthopedic MARITZA: 4 Review of Systems All systems reviewed & are unremarkable except as noted in HPI and below Constitutional Constitutional: Denies fever(s) Cardiovascular Cardiovascular: Denies chest pain Exam Const General: cooperative and no acute distress HENMT Mouth: moist mucous membranes Eyes Conjunctivae: normal conjunctivae Sclera: normal sclerae EOM: EOM intact bilaterally Neck Neck: trachea midline and supple Resp Auscultation: clear to auscultation bilaterally, no rales, no rhonchi and no wheezes Cardio Rate: regular rate and not tachycardic Rhythm: regular rhythm GI Palpation: soft, not firm, no guarding, no masses, not rigid and nontender Skin General skin exam: no rashes or lesions noted Neuro General: patient alert, patient awake, patient oriented x3 and tone normal Cranial Nerves: CN's II-XI intact bilaterally Cognition: normal cognition Speech: speech normal Motor: strength 5/5 throughout Sensory Exam: no sensory deficits noted Extrem General: no edema Right lower extremity: foot Details: vascular exam Details: dorsalis pedis pulse present and posterior tibial pulse present Psych Appearance: grossly normal Mental Status: mental status grossly normal Speech and Movement: speech and movement normal Course Vital Signs Vital signs: Vital Signs Temperature 36.7 C 11/17/23 07:02 Pulse 81 11/17/23 07:02 Respiratory Rate 12 11/17/23 07:02 Blood Pressure 158/74 H 11/17/23 07:02 Pulse Oximetry 98 11/17/23 07:02 Temperature 36.7 C 11/17/23 07:02 Temperature Source Oral 11/17/23 07:02 Pulse 81 11/17/23 07:02 Respiratory Rate 12 11/17/23 07:02 Blood Pressure 158/74 H 11/17/23 07:02 Pulse Oximetry 98 11/17/23 07:02 Oxygen Delivery Method Room Air 11/17/23 07:02 Oxygen Flow Rate 0 11/17/23 07:02 Pain Level 0 11/17/23 07:02 Medical Decision Making 735 --43-year-old female with multiple medical problems including history of diabetes type 2, hypertension, hyperlipidemia, obesity, here with right foot paresthesias since this morning. Patient also with multiple presyncopal episodes this morning. Patient is hemodynamically stable. She is saturating well and in no respiratory distress. Patient is neurologically intact on exam -her sensation is intact in her right foot as is motor function but she does note some feeling of tingling. Vascular exam of the foot is normal. No lower extremity edema or calf tenderness. Unclear etiology for symptoms today. Given mild headache I will obtain CT of the head. Regarding presyncope, consider arrhythmia versus worsening anemia versus other. 1045 --CT of the head interpreted by radiology: No acute intracranial findings on this noninfused CT scan of the brain. Evidence of previous right mastoidectomy. Left mastoid air cells are unremarkable Other paranasal sinuses are clear. Labs reviewed: Chronic anemia noted. Normal troponin. Patient was reassessed and notes complete resolution of symptoms with IV fluid. Patient feeling much better. Ambulating without any difficulty. Patient observed in the emerged permit for 4 hours with no arrhythmia noted on monitor. Plan for discharge with close outpatient follow-up with PCP. Usual customary discharge instructions reviewed with the patient. Lab Data Lab results reviewed: Yes I reviewed the patient's lab results. Labs: Laboratory Tests Range/Units 11/17/23 08:12 WBC (4.4-10.8) 10^3/uL 7.03 RBC (3.93-5.22) 10^6/uL 4.55 Hgb (11.2-15.7) g/dL 9.3 L Hct (36.0-46.0) % 32.2 L MCV (80-95) fL 71 L MCH (27.0-33.0) pg 20.4 L MCHC (32.0-36.0) % 28.9 L RDW (11.7-14.6) % 19.9 H Plt Count (130-400) 10^3/uL 362 MPV (8.0-11.0) fL 7.5 L Immature Gran % 0.4 Neutrophils % 51.3 Lymphocytes % 37.3 Monocytes % 8.5 Eosinophils % 2.1 Basophils % 0.4 Nucleated RBC % (0.0-0.3) % 0.0 Absolute Neutrophils (1.2-6.7) 10^3/uL 3.60 Absolute Lymphocytes (1.2-3.4) 10^3/uL 2.62 Absolute Monocytes (0.1-0.8) 10^3/uL 0.60 Absolute Eosinophils (0.0-0.7) 10^3/uL 0.15 Absolute Basophils (0.0-0.2) 10^3/uL 0.03 RBC Morphology See Below Polychromasia Present Microcytosis 1+ Sodium (136-145) mmol/L 140 Potassium (3.5-5.1) mmol/L 3.6 Chloride (98-107) mmol/L 101 Carbon Dioxide (21.0-32.0) mmol/L 27.2 Anion Gap (3-11) mmol/L 11.8 H BUN (7-18) mg/dL 15 Creatinine (0.55-1.02) mg/dL 0.7 Est GFR (CKD-EPI 2020) (mL/min/1.73m2) 108.62 Glucose (74-106) mg/dL 143 H Calcium (8.5-10.1) mg/dL 9.0 Magnesium (1.8-2.4) mg/dL 1.7 L Total Bilirubin (0.2-1.0) mg/dL 0.5 AST (15-37) U/L 21 ALT (14-59) U/L 37 Alkaline Phosphatase (46-116) U/L 87 Troponin I (< or =60) ng/L < 50 Total Protein (6.4-8.2) g/dL 7.5 Albumin (3.4-5.0) g/dL 3.7 Quality:SDOH Health Related Social Needs: No Data to Display PFSH All Active Problems (Updated 11/21/23 @ 00:05 by MER[facility] SHUKLA) Pre-syncope (Acute) Paresthesia of right foot (Acute) Fibroid uterus (Acute) 4cm. incidental finding on u/s. Stress incontinence (Chronic) mild to mod. needs pad Mood changes (Acute) Biliary colic (Acute) Depression (Chronic) Hypertension (Chronic) Hyperlipidemia (Acute) Dermatitis (Acute) Type 2 diabetes mellitus (Acute) Medical History Fracture closed, humerus Surgical History S/P cholecystectomy (~12/04/22) Dr Butcher History of placement of ear tubes Per patient skin graft and bones removed from her ear right. Family History Daughter Substance use disorder Asthma Anxiety Other Breast cancer Cancer Colon cancer Depression Diabetes Hypertension Social History Smoking/Tobacco Use Status: Former Tobacco Use Quit Date: 09/18/21 Tobacco: How many years used: 20 Quit status: has quit before Smoking risk assessment performed?: Yes Alcohol Intake: never Drug use: Never Substance use type: does not use Adopted: No Caregiver/Support person: No Foster care: No Household members: spouse and other Details: Ha Housing: house Number of Children: 3 number of grandchildren: 4 Communication Needs: Corrective Lenses Education Level: college Details: Associate's Degree Do you need help understanding health information?: Rarely current occupation: [email or web address]. works with her . Pets and animals: Yes Pets and animals: cat(s) and dog(s) Sexually active: Yes Do you think of yourself as: straight/heterosexual Current gender identity: female What is your relationship status?: How often do you talk on the phone with friends or family?: three or more times per week How often do you get together with friends or relatives?: once per week Do you belong to any clubs or organized social groups?: no Panel score (0-1 are the most socially isolated patients): 2 What type of physical activity do you participate in: none Alivia/Yarsani: Yazidism Special alivia needs: No Seatbelt use: always Helmet use: Yes Helmet use: always Drive intox or ride w/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 Date GA/Weeks # Preg Succ Route Wgt Sex Labor Lgth Anesthesia Location [facility] 10/21/96 37 No Yes vaginal 3090.098 g Female [place] 04/05/99 40 No Yes vaginal 3345.244 g Female [facility] 01/14/03 40 No Yes vaginal 3600.389 g Male [facility] Delivery Date: 10/21/96 Last Updated by: Samantha Kovacs MD [place] Delivery Date: 04/05/99 Last Updated by: Samantha Kovacs MD [place] Delivery Date: 01/14/03 Last Updated by: Samantha Kovacs MD Jeremiah
--- NOTE | 2023-11-17 08:13 | DI.VRAD_ITS ---
PROCEDURE INFORMATION: Exam: CT Head Without Contrast Exam date and time: 11/17/2023 7:46 AM Age: 43 years old Clinical indication: Pain; Headache; Patient HX: Right foot parasthesia today; Mild RANDHAWA, presyncope TECHNIQUE: Imaging protocol: Computed tomography of the head without contrast. COMPARISON: No relevant prior studies available. FINDINGS: Brain: Normal. No hemorrhage. Unremarkable white matter. No mass effect. Cerebral ventricles: No ventriculomegaly. Paranasal sinuses: Visualized sinuses are unremarkable. No fluid levels. Mastoid air cells: Visualized mastoid air cells are well aerated. Bones/joints: Unremarkable. No acute fracture. Soft tissues: Unremarkable. IMPRESSION: No acute intracranial abnormality. Dictated and Authenticated by: Olimpia Coleman MD. Ordering:JUDAH Landin MD
[2023-11-17 08:17] LABS: Abs Immature Grans 0.03 10^3/uL (0.0-0.06); Absolute Basophil Count 0.03 10^3/uL (0.0-0.2); Absolute Eosinophil Count 0.15 10^3/uL (0.0-0.7); Absolute Lymphocyte Count 2.62 10^3/uL (1.2-3.4); Basophils % 0.4; Eosinophils % 2.1; HCT 32.2 % (36.0-46.0); HGB 9.3 g/dL (11.2-15.7); Immature Grans % 0.4; Lymphocytes % 37.3; MCH 20.4 pg (27.0-33.0); MCHC 28.9 % (32.0-36.0); MCV 71 fL (80-95); MPV 7.5 fL (8.0-11.0); Monocytes % 8.5; Neutrophils % 51.3; Platelet Count 362 10^3/uL (130-400); RBC 4.55 10^6/uL (3.93-5.22); RDW 19.9 % (11.7-14.6); RDW-SD 49.5 fL; WBC 7.03 10^3/uL (4.4-10.8)
[2023-11-17] MEDS: Lactated Ringers 500 ML IV (08:17)
[2023-11-17 08:47] LABS: ALT 37 U/L (14-59); AST 21 U/L (15-37); Albumin 3.7 g/dL (3.4-5.0); Alkaline Phosphatase 87 U/L (46-116); Anion Gap 11.8 mmol/L (3-11); BUN 15 mg/dL (7-18); Bilirubin, Total 0.5 mg/dL (0.2-1.0); CO2 27.2 mmol/L (21.0-32.0); CREATININE 0.7 mg/dL (0.55-1.02); Chloride 101 mmol/L (98-107); Estimated GFR 108.62 (mL/min/1.73m2); Glucose 143 mg/dL (74-106); Magnesium 1.7 mg/dL (1.8-2.4); Potassium 3.6 mmol/L (3.5-5.1); Sodium 140 mmol/L (136-145); Total Protein 7.5 g/dL (6.4-8.2); Troponin I < 50 ng/L (< or =60)
[2023-11-17 08:57] LABS: Microcytosis 1+; Polychromasia Present
[2023-11-17] MEDS: Magnesium Oxide 400 MG TAB 800 MG PO (09:30)
== END 2023-11-17 11:11 | disposition home or self-care (01) ==
PROVIDERS: Emergency Provider Student in an Organized Health Care Education/Training Program; PCP Nurse Practitioner
DX: R20.2 Paresthesia of skin (principal); R55 Syncope and collapse; R51.9 Headache, unspecified
CPT/HCPCS: 80053; 93005; 99285; 70450; 83735; 84484; 85025; 93010; 99283

== ENCOUNTER 2023-12-05 12:36 | Outpatient (RCR) | payer OTHER, SELFPAY ==
--- NOTE | 2023-12-05 09:15 | HOLTER_ITS ---
APPROVED REPORT Conclusion This is a 48-hour Holter monitor Rhythm throughout was sinus with an average heart rate of 84. Minimum was 67, maximum 116 There were 2 ventricular ectopic beats There were 5 atrial premature beats There was no atrial fibrillation, no high-grade AV block, no pauses greater than 3 seconds No symptoms were reported
== END 2023-12-19 23:59 | disposition home or self-care (01) ==
LOC: CARDOPNVT 12:36
PROVIDERS: PCP Nurse Practitioner; Visit Provider Internal Medicine Cardiovascular Disease
DX: R55 Syncope and collapse (principal)
CPT/HCPCS: 93225; 93226

== ENCOUNTER → 2023-12-16 00:08 | Outpatient (CLI) | payer OTHER, SELFPAY ==
--- NOTE | 2023-12-16 06:30 | DI.US_ITS ---
APPROVED REPORT EXAM: Comprehensive 2D, Doppler, and color-flow Echocardiogram Patient Location: Out-Patient Graduate Student Instructor: Rita Lott RT (R) (CT) RD Rhythm: NSR Indications: Pre-syncope Other Information Study Quality: Adequate Conclusion Normal left ventricular wall thickness and chamber size. Ejection fraction is 65 to 70%. Wall motio n is normal Normal right ventricular size and function Both atria are normal in size There is no structural or hemodynamically significant valvular disease Wall motion Left Ventricle The left ventricle is normal size. The left ventricular systolic function is normal. The left ventric ular ejection fraction is within the normal range. There is normal left ventricular wall thickness. T here is normal LV segmental wall motion. The left ventricular diastolic function is normal. There is no ventricular septal defect visualized. LVEF is 65-70%. Right Ventricle The right ventricle is normal size. The right ventricular systolic function is normal. Moderator band is seen in the right ventricle. Atria The left atrium size is normal. The right atrium size is normal. There is a prominent sylvie terminal is. The interatrial septum is intact with no evidence for an atrial septal defect. Aortic Valve Aortic valve is trileaflet. There is no aortic valvular stenosis. No aortic regurgitation is present. Mitral Valve The mitral valve is normal in structure. No evidence of mitral valve stenosis. Trace to mild mitral r egurgitation. Tricuspid Valve The tricuspid valve is normal in structure. There is no tricuspid valve stenosis. Mild tricuspid regu rgitation. The RVSP is 35-40 mmHg. Pulmonic Valve The pulmonary valve is normal in structure. There is no pulmonic valvular stenosis. Great Vessels The aortic root is normal in size. The pulmonary artery is normal. The ascending aorta is normal in s ize. Aortic arch is normal in caliber. The IVC is normal in size and collapses >50% with inspiration. Pericardium There is no pericardial effusion. There is no pleural effusion. 2D Dimensions IVSD d PLAX 1.10 cm F: 0.6-1.0 Ao Root d 2.90 cm F: 2.7 - 3.3 LVPW d PLAX 1.10 cm F: 0.6 - 1.0 Ao Asc Diam d 3.08 cm F: 2.3 - 3.1 LVID d PLAX 4.62 cm F: 3.8 - 5.2 Prox Ao Arch 2.9 cm LVDs 2.85 cm F: 2.2 - 3.5 IVC Diam exp d SLAX 2.2 cm LV EF Teichholz 68.6 % FS 38.31 % LV EDV (Teich) 98.3 mL LV ESV (Teich) 30.9 mL M-Mode TAPSE 3.01 cm (M/F) >1.7 Auto EF LV EDV A4C 142.8 mL LV EDV A2C 119.2 mL LV EDV BP 128.4 mL LV ESV A4C 77.1 mL LV ESV A2C 42.6 mL LV ESV BP 55.4 mL LVEF(%) A4C 46.0 % LVEF(%) A2C 64.3 % LVEF(%) BP 56.9 % LV SV A4C 65.7 ml LV SV A2C 76.6 ml LV SV BP 73.0 ml LV CO A4C 5.0 L/min LV CO A2C 5.9 L/min LV CO BP 5.4 L/min HR A4C 75.63 BPM HR A2C 77.09 BPM LV EDV Index (BP) LV Strain Long Pk Overal Avg (s) 17.41 LA Volume LA Length A4C 5.2 cm LA Length A2C 5.2 cm LA Area A4C s 15.49 cm2 LA Area A2C s 17.40 cm2 LA Vol A4C A-L 39.27 mL LA Vol A2C A-L 49.04 mL LA Vol Biplane A-L 44.1 mL LA Vol/BSA A4C A-L LA Vol/BSA A2C A-L LA Vol/BSA BP A-L 20.7 mL/m2 LA Vol A4C MOD 38.7 mL LA Vol A2C MOD 47.5 mL LA Vol BP MOD 43.0 mL LV Diastology MV E' medial 0.081 (>0.07 m/s) MV E Vmax 0.93 (0.4-1.3 m/s) MV E/E' MED 11.45 (<14) MV A Vmax 0.90 (0.4-1.3 m/s) MV E' lateral 0.149 (>0.1 m/s) E/A Ratio 1.0 MV E/E' LAT 6.20 (<14) MV E' Average 0.115 m/s MV E/E'(average) 8.05 Aortic Valve AoV Vmax 2.11 m/s LVOT Vmax 1.43 m/s AoV Peak Grad 17.9 mmHg LVOT Peak Grad 8.1 mmHg AoV Area (Vmax) 2.26 cm2 LVOT VTI 0.297 m AoV VTI 0.398 m LVOT Mean Grad 4.2 mmHg AoV Mean Renny. 1.38 m/s LVOT SV 99.13 mL AoV Mean Grad 8.6 mmHg LVOT Diam s 2.05 cm AoV Area (VTI) 2.49 cm2 Velocity Ratio 0.68 Mitral Valve MV DT 217 (160-240 msec) Pulm Vein s 0.75 m/s Pulm Vein d 0.34 m/s Pulm Vein a 0.25 m/s Pulmonary Valve RVOT Vmax 0.68 m/s RVOT Peak Gr. 1.8 mmHg RVOT VTI 0.138 m RVOT Mean Gr. 0.8 mmHg Tricuspid Valve RA Pressure 8.00 mmHg TR Vmax 2.63 m/s TV S' 0.17 m/s TR Peak Grad 27.5 mmHg RVSP (TR) 35.6 mmHg
== END ==
PROVIDERS: PCP Nurse Practitioner; Visit Provider Nurse Practitioner
DX: R55 Syncope and collapse (principal)
CPT/HCPCS: 93306

== ENCOUNTER 2023-12-29 16:18 | Outpatient (CLI) | payer OTHER, SELFPAY ==
[2023-12-29 12:35] LABS: Lipase 43 U/L (16-77)
[2023-12-29 12:51] LABS: Hemoglobin A1C 8.7 % (<5.7)
== END 2023-12-29 16:19 | disposition home or self-care (01) ==
LOC: LBO 16:18
PROVIDERS: PCP Nurse Practitioner; Visit Provider Nurse Practitioner
DX: R10.9 Unspecified abdominal pain (principal); E11.9 Type 2 diabetes mellitus without complications
CPT/HCPCS: 36415; 83690; 83036

== ENCOUNTER 2024-02-16 09:45 | Day surgery (SDC) | payer OTHER, SELFPAY ==
--- NOTE | 2024-02-15 13:38 | W.PM.DSUDISC ---
Date of service: 02/16/24 Time of Service: 12:44 Discharge Plan Disposition Patient Disposition: Home Condition: Good Discharge Details Reason For Visit: EGD and colonoscopy Attending Provider: Markus Card Primary Care Provider: Shanel Troy Home Meds and New Rx's Prescriptions: Continued Ozempic 1 mg/dose (4 mg/3 mL) pen injector 1 mg subcut QWEEK Qty: 3 0RF Rx Instructions: After completion of the 0.5 mg dose for 4 weeks. glimepiride 4 mg tablet 4 mg PO DAILY Qty: 90 3RF metformin 1,000 mg tablet 1,000 mg PO BID Qty: 180 3RF hydrochlorothiazide 25 mg tablet 25 mg PO DAILY Qty: 90 3RF citalopram 40 mg tablet 40 mg PO DAILY Qty: 90 3RF lisinopril 40 mg tablet 40 mg PO DAILY Qty: 90 3RF atorvastatin 20 mg tablet 20 mg PO DAILY Qty: 90 3RF ferrous sulfate 325 mg (65 mg iron) tablet,delayed release (DR/EC) 325 mg PO DAILY Qty: 90 3RF Rx Instructions: Please take one tablet by mouth daily cholecalciferol (vitamin D3) 50 mcg (2,000 unit) capsule 50 mcg PO DAILY Qty: 90 3RF mecobalamin (vitamin B12) 1,000 mcg tablet,chewable 1,000 mcg PO DAILY Qty: 90 3RF omeprazole 40 mg capsule,delayed release(DR/EC) Patient Comments: TAKE 1 CAPSULE BY MOUTH ONCE DAILY 30 MINUTES BEFORE LARGEST MEAL OF THE DAY Discontinued bisacodyl [Dulcolax (bisacodyl)] 5 mg tablet,delayed release (DR/EC) 5 mg PO ONCE Qty: 4 0RF Rx Instructions: Take per colonoscopy instructions provided by ordering providers office polyethylene glycol 3350 17 gram/dose powder 17 g PO ONCE Qty: 238 0RF Rx Instructions: Take per colonoscopy instructions provided by ordering providers office Discharge Instructions Instructions: Colon polyps Additional Instructions: Sarina, we were able to complete your upper and lower endoscopy today without much difficulty. With regards to the upper endoscopy, or EGD, I did find a few polyps in your stomach. Majority of these were benign appearing. 2 of them are in the antrum, which is the location slightly atypical for polyps. These 2 were removed, and will be sent off for testing. It is also possible that this is some scar tissue from previous ulcers. I did not see any active signs of ulceration or irritation today. To the naked eye, I do not see signs of celiac disease, but I did perform biopsies of the duodenum in consideration of this. Similarly, I did multiple biopsies of your stomach in order to rule out Helicobacter pylori as a source of your symptoms. With regard to the colonoscopy, and generally speaking everything looks quite normal. I did find and remove a total of 5 polyps today. A majority of these appear to be hyperplastic, which are not at all dangerous. To be safe, I will send off these polyps for testing, and that will help inform us regarding the timing of your next endoscopy. Once I have the results of all the biopsies and polyp report, I will be in touch with any other recommendations. In the meantime, I recommend you continue the omeprazole as prescribed 1. If tolerated, consume a soft, low fiber diet for 1-2 days. 2[address] Do not drive, drink alcohol, operate machinery, make critical decisions, or do activities that require coordination or balance for 24 hours. 3. Because air was put into your colon during the procedure, expelling air from your rectum (passing gas or farting) is normal. 4. You may not have a bowel movement for 1-3 days because of the colonoscopy prep. This is normal. 5. You may experience a sore throat for 24 to 48 hours. You may use throat lozenges or gargle with warm salt water to relieve the discomfort. 6. Because air was put into your stomach during the procedure, you may experience some belching. 7. Go directly to the emergency room if you notice any of the following: Develop chills (warm to touch), or if you have a thermometer and your temperature is above 101 Difficulty breathing or difficultly swallowing Persistent vomiting Severe abdominal pain, other than gas cramps Severe chest pain Black, tarry stools Any bleeding ? exceeding one tablespoon 8. Call your physician if the site where your intravenous was started becomes red, swollen, painful, and warm to touch. 9. Your physician has reviewed your pre-procedure medications. Please continue to take those medications as previously ordered. You will be given specific information/education regarding any changes to your medications before leaving. Stand Alone Forms: Anesthesia Discharge Jeannette Tong (ELKIN) Activity:: Activity as Tolerated Diet:: As Tolerated Discharge Orders Discharge Orders: Discharge Order (Routine); Ordered 02/15/24 Ordered By: Markus Card DS: Diagnosis Discharge Diagnosis (1) Iron deficiency: Status: Acute Asessment and Plan: Follow-up on biopsy results and polypectomy report
--- NOTE | 2024-02-15 13:40 | ENDO_ITS ---
Date of service: 02/16/24 Time of Service: 12:48 Endoscopy Report DATE OF PROCEDURE: 02/16/24 PRE-OP DIAGNOSIS: anemia POST-OP DIAGNOSIS: other (Gastric polyps, colon polyps) PROCEDURE: EGD with polypectomy and biopsies and colonoscopy with polypectomy SURGEON: Markus Card ANESTHESIA TYPE: General:No Airway ESTIMATED BLOOD LOSS: 15 PATHOLOGY: other (Biopsies of duodenum and duodenal bulb, gastric polyps x 2, random biopsies of gastric antrum and body; colon polyps at 85 cm, 35 cm, and 25 cm) COMPLICATIONS: None DISPOSITION: same day INDICATIONS: Sarina is a 43 year old woman with an iron deficiency anemia of uncertain etiology. She is undergoing diagnostic EGD and colonoscopy to evaluate for gastrointestinal blood loss. PREP: Miralax/Dulcolax PROCEDURE START TIME: 11:51 PROCEDURE END TIME: 12:28 COLONOSCOPY RETRACTION TIME: 19 FINDINGS: Gastric fundic and antral polyps, slight thickening of gastric antral tissue perhaps consistent with peptic ulcer disease; colon polyps PROCEDURE DESCRIPTION: After the initiation of anesthesia, and with the assistance of a bite block, I advanced a standard gastroscope through the mouth past the hypopharynx and into the esophagus.? Under the direct vision of the scope, I advanced down the esophagus towards the stomach.? The upper, mid, and lower esophagus all appeared totally normal. The GE junction measures 38 cm from the incisors, and the Z- line was mostly regular without any overt evidence of significant inflammation. Narrowband imaging was used to assist with analysis. I did not see any features of Bowser's esophagus. I entered the stomach and perform retroflexion. There is a grade 2 hiatal hernia. There is no evidence of inflammation at the upper portion of the stomach. There were a few benign-appearing fundic polyps. After advancing around the incisura angularis, I did see 2 antral polyps. These were removed with cold forceps polypectomy with no worrisome bleeding. The antral tissue did feel a little bit thickened, and perhaps a bit redundant. Some of the features seem consistent with some healing peptic ulcer disease. There is no obvious ulceration or active inflammation. I advanced through the pylorus into the duodenum. The duodenal bulb appeared normal. It did not seem consistent with celiac disease. I advanced down to the third portion of the duodenum. I did not see any signs of inflammation, ulceration, or bleeding within any of the duodenum. I did perform some random cold forceps biopsies of the duodenum and duodenal bulb to rule out celiac disease. I brought the camera back up into the stomach and examined it once again. I did not see any other abnormalities aside from what was previously mentioned. I did perform some random cold forceps biopsies of the gastric antrum and body to rule out Helicobacter pylori. Stomach was then emptied, and the camera was brought back out along the length the esophagus which was examined again. I did not see anything else out of the ordinary. We then moved Sarina into the left lateral decubitus position. I began by performing an external anorectal exam.? Perineum and skin were normal, as was the anal verge.? There was no evidence of external hemorrhoids.? Next, I perf ormed a digital rectal exam.? I did not appreciate any abnormal findings.? Next, I advanced a colonoscope into the rectal vault.? I performed retroflexion.? This appeared normal.? Using insufflation, I then advanced the colonoscope beyond the rectal folds and into the sigmoid colon before advancing towards the cecum.? The scope was noted to be in the cecum by identification of the ileocecal valve and appendiceal orifice.? I then began withdrawing the colonoscope using repeated irrigation as necessary for full evaluation of the colonic mucosa. ?Once the scope was withdrawn to the level of the rectum, great care was taken to examine portions of the rectal folds.? Around 85 cm from the anal verge was a 0.25 cm, slightly pedunculated polyp. This was removed with cold forceps polypectomy without issue. Around 35 cm from the anus was a small cluster of polyps. Each was less than 0.25 cm. They were all just a few centimeters away from 1 another. These were all removed with cold forceps polypectomy. There was minimal bleeding here, and I continued removing the scope. Around 25 cm from the anus was another polyp. This was larger around 0.75 cm, and flat. Narrowband imaging was used to assist here, in addition to the polyps that were mentioned previously. Clinically, this appeared consistent with a hyperplastic polyp, however, to be safe, I did remove this with cold snare polypectomy. Finally, the scope was withdrawn and the patient was brought to the same-day surgery recovery unit as the anesthetic wore off. ?The findings and instructions were shared with the patient prior to discharge. The [place] bowel prep score from right to left was 2, 3, 3
[2024-02-16 10:18] VITALS: BP 147/78; PULSE 77; RESP 18; TEMP 36.5; O2SAT 97
[2024-02-16] MEDS: Lactated Ringers 1,000 ML 80 ML IV (10:30)
--- NOTE | 2024-02-16 11:41 | W.ANESPRE ---
General Info Date of Service Date Performed: 02/16/24 Height: 5 ft 4.5 in Weight: 107.6 kg Body Mass Index (BMI): 40.1 Surgical Procedure: Operation Date: 02/16/24 11:20 Proposed Procedure Side Surgeon p Colonoscopy/Gastroscopy Markus Card MD Actual Procedure Side Surgeon p Colonoscopy/Gastroscopy Not Applicable Markus Card MD Pre-Op Diagnosis Post-Op Diagnosis EGD and colonoscopy Meds Allergies and Home Medications Allergies Allergy/AdvReac Type Severity Reaction Status Date / Time No Known Allergies Allergy Verified 02/16/24 10:14 Home Medication ?Medication ?Instructions ?Recorded atorvastatin 20 mg tablet 20 mg PO DAILY #90 tabs 08/05/23 lisinopril 40 mg tablet 40 mg PO DAILY #90 tabs 08/05/23 citalopram 40 mg tablet 40 mg PO DAILY #90 tabs 10/20/23 glimepiride 4 mg tablet 4 mg PO DAILY #90 tabs 10/20/23 hydrochlorothiazide 25 mg tablet 25 mg PO DAILY #90 tabs 10/20/23 metformin 1,000 mg tablet 1,000 mg PO BID #180 tabs 10/20/23 cholecalciferol (vitamin D3) 50 50 mcg PO DAILY #90 caps 11/04/23 mcg (2,000 unit) capsule ferrous sulfate 325 mg (65 mg 325 mg PO DAILY #90 tabs 11/04/23 iron) tablet,delayed release mecobalamin (vitamin B12) 1,000 1,000 mcg PO DAILY #90 tabs 11/04/23 mcg chewable tablet semaglutide 1 mg/dose (4 mg/3 mL) 1 mg (0.75 mL) subcut QWEEK #3 mL 11/18/23 subcutaneous pen injector (Ozempic) omeprazole 40 mg capsule,delayed mg 02/16/24 release Current Visit Medications: Current Medications Generic Name Dose Route Start Last Admin Trade Name Freq PRN Reason Stop Dose Admin Ringer's Solution 1,000 mls @ 80 mls/hr 02/16/24 06:00 02/16/24 10:30 IV 02/16/24 23:59 80 mls/hr INFUSION IFTIKHAR Administration IV Miscellaneous Supplies 1 each 02/16/24 06:00 Iv Access IV 02/16/24 23:59 DIRECTED IFTIKHAR Sodium Chloride 0 ml 02/16/24 06:00 Normal Saline Flush 10 Ml Syr IV 02/16/24 23:59 PRN PRN Sodium Chloride 0 ml 02/16/24 06:00 Normal Saline 10 Ml Vial IJ 02/16/24 23:59 DIRECTED PRN Sterile Water 0 ml 02/16/24 06:00 Water,Injection,Sterile 10 Ml Vial IJ 02/16/24 23:59 DIRECTED PRN PFSH Active Problems Active Problems: Problem Status Onset Code Iron deficiency Acute E61.1 Fibroid uterus Acute D25.9 Stress incontinence Chronic N39.3 Mood changes Acute R45.86 Biliary colic Acute K80.50 Depression Chronic F32.A Hypertension Chronic I10 Hyperlipidemia Acute E78.5 Dermatitis Acute L30.9 Type 2 diabetes mellitus Acute E11.9 Medical History Medical History Fracture closed, humerus Surgical History Surgical History S/P cholecystectomy (~12/04/22) Dr Butcher History of placement of ear tubes Per patient skin graft and bones removed from her ear right. Tobacco Smoking/Tobacco Use Status: Former Tobacco Use Alcohol Alcohol Intake: never Substance Use Substance use: Never Substance use type: does not use Prental History History 3 Para Hx # Term Pregnancies 3 Multiple births Hx # Pregnancies Ectopic pregnancies AB induced Hx Number of Living Children 3 AB spontaneous Past Pregnancies Del. Date GA/Weeks # Preg Succ Route Wgt Sex Labor Lgth Anesthesia Location [facility] 10/21/96 37 No Yes vaginal 3090.098 g Female [place] 04/05/99 40 No Yes vaginal 3345.244 g Female [facility] 01/14/03 40 No Yes vaginal 3600.389 g Male [facility] Delivery Date: 10/21/96 Last Updated by: Samantha Kovacs MD [place] Delivery Date: 04/05/99 Last Updated by: Samantha Kovacs MD Beth Delivery Date: 01/14/03 Last Updated by: MD Jeremiah Mcpherson Vital Signs and Lab Results Vital Signs Most Recent Vital Signs in EMR: Most Recent Vital Signs Temp Pulse Resp BP Pulse Ox 36.5 C 77 18 147/78 H 97 02/16/24 10:18 02/16/24 10:18 02/16/24 10:18 02/16/24 10:18 02/16/24 10:18 Point of Care Results Point of Care Results: Finger Stick Blood Glucose 206 02/16/24 10:49 Lab Results Blood Type / Crossmatch: No Data to Display Complete Blood Count: No Data to Display Complete Metabolic Panel: No Data to Display Liver Function Panel: No Data to Display Coagulation Panel: No Data to Display Cardiac Panel: No Data to Display Arterial Blood Gas: No Data to Display Venous Blood Gas: No Data to Display Pancreas Panel: No Data to Display Thyroid Panel: No Data to Display Infectious Disease: No Data to Display Blood Cultures: No Data to Display Toxicology Panel: No Data to Display Panel: No Data to Display Imaging and Studies Imaging and Studies Study information below may be from another EMR and interpreted by another provider. Please see original notes in EMR for more complete details. EKG Summary: 09/12: sinus, LVH. Echocardiogram Summary: 2019 for cardiomegaly: LVEF 65%, LV wall thickness is normal, no LVOT. normal RVFxn, trace MR, trace TR. Anesthesia Assessment and Plan Anesthesia History Personal History: No History of Anesthesia Complications Family History: No Family History of Anesthesia Complications Exercise Tolerance Exercise Tolerance: Metabolic Equivalents>4 Pertinent Negatives Pertinent Negatives: No Symptoms of GERD, No Major Cardiovascular Symptoms or Complaints, No Major Pulmonary Symptoms or Complaints and No History of CVA/TIA Cardiac & Pulmonary Exam Cardiac Exam: Normal S1/S2 Heart Sounds Pulmonary Exam: Clear Bilateral Breath Sounds Implantable Cardiac Device Does patient have a Pacemaker or an ICD?: No Airway Exam Known Difficult Airway: No Mallampati Class: 3 Mouth Opening: Narrow (< 3cm) Thyromental Distance: Less than 3 cm Neck Range of Motion: Full ROM Neck Circumference: Thick Teeth Condition: Loose or Chipped, Dental Caries and Removable Dentures/Plates Upper Tooth Numberin. Two broken teeth with one them. ASA Classification ASA Score: ASA 3 Emergency Case?: No NPO Status NPO Status: NPO Clears >2 hours, Solids >8 hours Status Status: Negative HCG Anesthesia Plan Resuscitation Status: Full Code Anesthesia Technique: General Anesthesia Airway Planned: Natural Airway Monitors Used: Standard Monitors
[2024-02-16 11:42] VITALS: BMI 40.1
--- NOTE | 2024-02-16 11:53 | STOM_PTH ---
PATIENT: Sarina Nickerson LOC: [facility] U#:[id number] AGE/SX: 43/F ROOM: RE02/16/[address]: Markus Card MD : 1980 BED: DIS: 02/16/2024 SPEC #: [id number] RECD: 02/16/24 13:21 STATUS: [facility] #: [id number] CALEB: 02/16/24 11:[address]: Markus Card DEPT: Surgical Specimen RECD BY: Vivi Avila ENTERED: 02/16/24 13:23 SP TYPE: STOMACH OTHR DR: Shanel Troy APRN Tissues: 1 - BIOPSY BOWEL 2 - BIOPSY BOWEL 3 - STOMACH BIOPSY 4 - STOMACH BIOPSY 5 - STOMACH BIOPSY 6 - STOMACH BIOPSY 7 - BIOPSY BOWEL 8 - BIOPSY BOWEL 9 - BIOPSY BOWEL Procedures: GROSS AND MICRO LEVEL 4 Comments: [id number]
[2024-02-16 12:33] VITALS: BP 104/57; PULSE 84; RESP 18; TEMP 36.5; O2SAT 95
[2024-02-16 13:04] VITALS: BP 131/61; PULSE 76; RESP 18; TEMP 36.5; O2SAT 95
--- NOTE | 2024-02-16 13:18 | W.ANESPOSTOP ---
Postoperative Evaluation Date, Time and Location Date Performed: 02/16/24 Time Performed: 12:38 Patient Location: Day Surgery Unit Vital Signs Most Recent Imported Vital Signs: Most Recent Vital Signs Temp Pulse Resp BP Pulse Ox 36.5 C 84 18 104/57 L 95 02/16/24 12:33 02/16/24 12:33 02/16/24 12:33 02/16/24 12:33 02/16/24 12:33 Pain Score Most Recent Pain Score: Most Recent Pain Score Pain Level 0 02/16/24 12:33 Assessment Mental Status: Awake (Alert & Oriented to Patient Baseline) Airway and Respiratory Function: Patent airway with normal (patient baseline) respiratory exam Cardiovascular Function: Hemodynamically Stable Hydration Status: Adequately Hydrated Nausea & Vomiting: No Nausea or Vomiting Pain: Pt. Denies Any Pain Peripheral Nerve Block: Patient did not receive a nerve block
== END 2024-02-16 13:24 | disposition home or self-care (01) ==
LOC: SUR 09:46
PROVIDERS: PCP Nurse Practitioner; Visit Provider Surgery
PROC: (CPT 45385; principal; 2024-02-16 11:15)
DX: E61.1 Iron deficiency (principal); Z12.11 Encounter for screening for malignant neoplasm of colon; D12.3 Benign neoplasm of transverse colon; K31.7 Polyp of stomach and duodenum
CPT/HCPCS: 45385; 45380; 43239; 81025; 88305; J2001; J2704

== ENCOUNTER 2024-03-04 02:21 | Outpatient (CLI) | payer OTHER, SELFPAY ==
--- NOTE | 2024-03-04 06:15 | DI.US_ITS ---
Exam(s) US PELVIS TRANSVAGINAL EXAM: US PELVIS TRANSVAGINAL CLINICAL HISTORY: check IUD,abd pain,r10.9. TECHNIQUE: Transabdominal and transvaginal pelvic ultrasound was performed using standard protocol. COMPARISON: US US PELVIS TRANSVAGINAL from 06/21/2022 FINDINGS: UTERUS: Position: Anteverted. Size: 11.4 long by 6.7 AP by 6.8 transverse cm Endometrium: 0.8 cm. Normal for patient's menstrual status. No IUD was visualized on this examination . Myometrium: There uterine fibroids present. The largest is seen posteriorly in the fundus and measur es 4.5 x 4.8 x 4.7 cm. There is an anterior uterine fibroid measuring 3.4 x 4.1 x 4.2 cm. Cervix: Cervical nabothian cysts are present. OVARIES: Right: 5.2 x 4.0 x 2.7 cm Cyst or mass: No suspicious cystic or solid masses. There is a 4 x 3.0 x 2.8 cm simple right ovarian cyst. Left: 3.9 x 2.7 x 4.7 cm Cyst or mass: No suspicious cystic or solid masses. There is a 2.4 x 2.4 x 2.8 cm simple follicular left ovarian cyst. DOPPLER: Color: Symmetric and uniform flow to both ovaries. CUL-DE-SAC: Free fluid: None. Other: None. IMPRESSION: 1. Fibroid uterus. 2. There is no IUD visualized on this examination. 3. Bilateral ovarian follicles. DATA REPOSITORY:
--- NOTE | 2024-03-04 07:45 | DI.MAMMO_ITS ---
Exam(s) MAMMO SCREENING EXAM: MAMMO SCREENING CLINICAL HISTORY: screening,z12.39 TECHNIQUE: Bilateral full field digital CC and MLO mammographic images were obtained with 3D tomosyn thesis and utilizing computer aided detection (CAD). COMPARISON: Available for comparison. FINDINGS: Masses/Architectural Distortion: None seen. Microcalcifications: No suspicious pleomorphic-type are seen. Skin Thickening/Nipple Retraction: None. IMPRESSION: 1. No significant interval change with no specific features of malignancy noted. 2. Unless there is more urgent need, screening mammography is recommended, as per [employer] guidelines. BI-RADS Category 1 - Negative Breast Density - Category B - Scattered areas of fibroglandular density Breast density category C or D implies that the patient has dense breast tissue. Dense breast tissue is very common and is not abnormal but dense breast tissue can make it harder to find cancer on a ma mmogram. Also, dense breast tissue may increase their breast cancer risk. This information about the result of the mammogram report was provided to the patient to raise their awareness. Use this report when you speak with the patient about their risks for breast cancer, which includes their family hist ory. At that time, you may recommend for more screening tests (Ultrasound or MRI) as they might be us eful based on their risk. A negative radiographic report should not delay biopsy if a dominant or clinically suspicious mass is present. Up to ten percent of cancers are not identified on mammography. A negative report may reinforce clinical impression. Adenosis and dense breasts may obscure an underlying neoplasm. False positive reports average 6 to 10%. Patient will receive a letter notifying them of these results.
--- NOTE | 2024-03-04 11:19 | DI.RAD_ITS ---
Exam(s) XR ABDOMEN FLAT PLATE EXAM: 2D digital imaging was performed. CLINICAL HISTORY: T83.32XA Displacement of IUD, locate IUD. COMPARISON: CT CT ABDOMEN PELVIS W from 05/30/2022 TECHNIQUE: Supine views of the abdomen was performed. Three images were obtained. FINDINGS: LUNG BASES: Clear. BOWEL GAS PATTERN: Nondistended. There is a large amount of stool throughout the colon which may refl ect constipation. FREE AIR: None. CALCIFICATIONS: No radiopaque calcifications. OSSEOUS STRUCTURES: Normal for age. OTHER FINDINGS: There are surgical clips in the right upper quadrant of the abdomen likely reflecting prior cholecystectomy. There are phleboliths seen in the pelvis. There is no evidence of an IUD. IMPRESSION: No evidence of an IUD. DATA REPOSITORY: RADIATION DOSE DELIVERED:
== END 2024-03-04 02:41 ==
PROVIDERS: PCP Nurse Practitioner; Visit Provider Obstetrics & Gynecology
DX: Z12.31 Encounter for screening mammogram for malignant neoplasm of breast; T83.32XA Displacement of intrauterine contraceptive device, initial encounter
CPT/HCPCS: 77063; 77067; 74018; 76830; 76856

== ENCOUNTER 2024-03-17 21:34 | Outpatient (REF) | payer OTHER, SELFPAY | END 2024-03-17 21:35 | disposition home or self-care (01) | LOC: NCHCN 21:34 | PROVIDERS: PCP Nurse Practitioner; Visit Provider Nurse Practitioner | DX: R30.0 Dysuria (principal); N39.0 Urinary tract infection, site not specified | CPT/HCPCS: 87077; 87086; 87186 ==